=== PATIENT | male | born 1955 | race Caucasian/White ===

== ENCOUNTER → 2017-06-07 | Outpatient (CLI) | payer OTHER ==
[~2017-06-07] MED LIST: BARIUM SUSPENSION 2.1% (VANILLA SILQ) 450 ML PO ONE; CATHETER FLUSH 10 ML SYR IV PRN; IOHEXOL 350 MG/ML 100 ML (OMNIPAQUE 350) VIAL IV ONE; NS 250 ML (IVPB) BAG IV ONE
--- NOTE | 2017-06-07 11:13 | Diagnostic Imaging Report ---
PROCEDURE: CT abdomen and pelvis with contrast. TECHNIQUE: Multiple contiguous axial images were obtained through the abdomen and pelvis after administration of intravenous contrast. INDICATION: Left lung mass, lung cancer and metastatic disease. Comparison is made to CT scan of the thorax dated 05/15/2017 from [facility]. FINDINGS: Lobulated solid mass in the left lung base is partially included on the abdominal CT study. Mass measures at least 12 x 7.3 cm similar to the previous study. No focal hepatic, gallbladder, pancreatic or splenic lesion is identified. There is mild nodularity to the posterior limb of the right adrenal gland with nodule measuring 1.5 x 0.7 cm. 1.5 cm right lower pole renal cyst is noted. No solid renal lesion is identified. There is no evidence of hydronephrosis. No pathologic adenopathy is seen within the abdomen or pelvis. Partially opacified urinary bladder is unremarkable. There is moderate lumbar spondylosis. IMPRESSION: Dominant mass is seen in the lower lobe of the left lung compatible with patient's known lung cancer. There is nodularity to the right adrenal gland. While this may be benign, early metastatic disease is not fully excluded. Otherwise, there is no CT evidence of acute abnormality or metastatic disease in the abdomen or pelvis. Dictated by: Dictated on workstation # [id number]
== END ==
LOC: RAD 08:46
PROVIDERS: ATTEND Internal Medicine Hematology & Oncology
DX: C34.92 Malignant neoplasm of unspecified part of left bronchus or lung (principal); C79.31 Secondary malignant neoplasm of brain; E27.8 Other specified disorders of adrenal gland
CPT/HCPCS: 74177

== ENCOUNTER 2017-07-08 15:17 | Inpatient (IN) | payer OTHER ==
[~2017-07-08] VITALS: Ht 180.3 cm; Wt 85.3 kg
[2017-07-08 16:00] VITALS: BP 101/56
[2017-07-08 17:00] VITALS: BP 104/66
[2017-07-08] MEDS ORDERED: LEVE500T6 PO (17:08)
[2017-07-08] MEDS ORDERED: DABR75CA PO (17:12)
[2017-07-08] MEDS ORDERED: TRAM2TAB PO (17:12)
--- NOTE | 2017-07-08 17:36 | History & Physical-Hospitalist ---
History of Present Illness HPI/Chief Complaint CC: Hypoxia with accelerated junctional arrhythmia HPI: This is a 61-year-old white male patient of Dr. Elmore who was previously in good health all of his life until he suffered a new onset seizure and upon assessment in the [facility] ER on May 14 he was found to have a brain mass so he was transferred over to [facility] in [place] for neurological evaluation. Upon further assessment he was found to have lung masses and lung biopsy was performed by interventional radiology the confirmed metastatic melanoma of unknown primary source. He does not smoke he does not drink alcohol to excess any previously worked up until a month ago at [facility]. I have updated Dr. Elmore on accepting this patient to higher level of care and spoke to Dr. Escobedo she will seen in consultation since he was scheduled to see her this afternoon and cardiology for accelerated junctional arrhythmia in addition to Dr. Workman for hypoxia. When I assessed him an ABG was being obtained he was found to have a fever of 101.8 so I initiated the sepsis protocol including blood cultures empirically started Zosyn and noted lactic acid was within normal limits. Source: patient, family, RN/MD Exam Limitations: no limitations Date Seen 07/08/17 Time Seen by Provider: 17:30 Attending Physician Inessa Bedoya Lisa A MD Referring Physician Date of Admission July 08, 2017 at 15:17 Home Medications & Allergies Home Medications Reviewed patient Home Medication Reconciliation performed by pharmacy medication reconciliations cardiopulmonary technician and eeg tech and/or nursing. Patients Allergies have been reviewed. Allergies Allergies Coded Allergies No Allergy Information Available (Unverified06/07/17) Past Oulhpom-Umhsod-Klputp Hx Past Med/Social Hx: Reviewed Nursing Past Med/Soc Hx, Reviewed and Corrections made Patient Social History Marrital Status: single Employed/Student: employed Smoking Status: Never a Smoker Past Medical History Neurological: Seizure Disorder Cancer: Melanoma dx 05/14/17 Review of Systems Constitutional: see HPI, dizziness, fever, malaise, weakness EENTM: no symptoms reported Respiratory: cough, short of breath, wheezing Cardiovascular: palpitations Gastrointestinal: loss of appetite, nausea Genitourinary: no symptoms reported Musculoskeletal: back pain Skin: no symptoms reported Psychiatric/Neurological: No Symptoms Reported All Other Systems Reviewed Negative Unless Noted: Yes Physical Exam Physical Exam Vital Signs Vital Signs - First Documented 07/08/17 07/08/17 16:00 17:00 Temp 101.8 Pulse 74 Resp 31 B/P (MAP) 101/56 (71) Pulse Ox 96 O2 Delivery Room Air O2 Flow Rate 3.00 Capillary Refill : General Appearance: WD/WN, Chronically ill, Mild Distress (coughing and fatigued), Obese, Other (chronically ill) Eyes: Bilateral Eye Normal Inspection, Bilateral Eye PERRL HEENT: PERRL/EOMI, Normal ENT Inspection, Pharynx Normal Neck: Full Range of Motion, Normal Inspection, Non Tender, Supple, Carotid Bruit Respiratory: Chest Non Tender, No Accessory Muscle Use, No Respiratory Distress , Decreased Breath Sounds Cardiovascular: No Edema, No Gallop, No JVD, No Murmur, Normal Peripheral Pulses, Tachycardia Gastrointestinal: Normal Bowel Sounds, No Organomegaly, No Pulsatile Mass, Non Tender, Soft Back: Normal Inspection, No CVA Tenderness, No Vertebral Tenderness Extremity: Normal Capillary Refill, Normal Inspection, Normal Range of Motion, Non Tender, No Calf Tenderness, No Pedal Edema Neurologic/Psychiatric: Alert, Oriented x3, No Motor/Sensory Deficits, Normal Mood/Affect Skin: Normal Color, Warm/Dry Lymphatic: No Adenopathy Results Results/Procedures Labs Laboratory Tests 07/08/17 17:55 Patient resulted labs reviewed. Assessment/Plan Admission Diagnosis Hypoxia with cardiac arrhythmia Admission Status: Inpatient Order (span 2 midnights) Reason for Inpatient Admission: Hypoxia with new dx of melanoma with mets and unknown primary with cardiac arrythymia Assessment and Plan Plan: CSD status Consult Dr Gillespie Monitor on Tely O2 maintenance Sepsis w/u due to fever of 101.8 Reconcile and restart all home meds Diagnosis/Problems Diagnosis/Problems (1) Junctional ectopic tachycardia Status: Acute Assessment & Plan: 07/08 -Consult Dr Gillespie and check EKG and maintain Tely (2) Hypoxia Status: Acute Assessment & Plan: 07/08 -O2, Nebs and Dr Workman consultation (3) Fever Status: Acute Assessment & Plan: 07/08 -Empiric abx for presumed post-obstructive pneumonia LLL after BCx obtained and noted LA nl Qualifiers: Fever type: unspecified Qualified Codes: R50.9 - Fever, unspecified (4) Seizure disorder Status: Chronic Assessment & Plan: 07/08 -Keppra home med (5) Cough Status: Acute Assessment & Plan: 07/08 -Nebs (6) Metastatic melanoma Status: Acute Assessment & Plan: 07/08 -Dr Henson consult INESSA BEDOYA DO July 08, 2017 17:36
[2017-07-08 17:43] LABS: ABG BASE EXCESS 5.2 MMOL/L (-2.5-2.5); ABG OXYGEN SATURATION 98 % (94-100); ABG PCO2 44 MMHG (35-45); ABG PH 7.44 (7.37-7.43); ABG PO2 99 MMHG (79-93); ABG TCO2 30.2 MMOL/L (21.0-31.0)
[2017-07-08] MEDS ORDERED: HYDROcodone/APAP 5 MG/325 MG (LORTAB) TAB PO PRN (17:45)
[2017-07-08] MEDS ORDERED: fentaNYL INJECTION 100 MCG/2 ML AMP IVP PRN (17:45)
[2017-07-08] MEDS ORDERED: ALPRAZolam 0.25 MG (XANAX) TAB PO PRN (17:45)
[2017-07-08] MEDS ORDERED: PIPERACILLIN SODIUM/TAZOBACTAM 4.5 GM in NS (IVPB) 100 ML IV SCH (17:45)
[2017-07-08] MEDS ORDERED: ACETAMINOPHEN 500 MG TAB (TYLENOL) PO PRN (17:45)
[2017-07-08] MEDS ORDERED: ONDANSETRON 4 MG/2 ML (SDV) Z0FRAN IVP PRN (17:45)
[2017-07-08 17:46] LABS: INSPIRED O2 3; PATIENT TEMP 101.8; VENTILATOR NO
--- NOTE | 2017-07-08 17:58 | Diagnostic Imaging Report ---
INDICATION: Hypoxia. FINDINGS: Upright chest shows normal heart size and vascularity. There is an area of increased density in the left lower lobe consistent with a mass that was seen on a CT of the abdomen from 06/07/2017. No alveolar infiltrates are seen. There is no effusion or pneumothorax. IMPRESSION: There is a 10 cm mass in the left lower lobe. Dictated by: Dictated on workstation # [id number]
--- NOTE | 2017-07-08 17:58 | Oncology Consultation ---
Visit Information Visit Information Date of Admission July 08, 2017 at 15:17 Attending Physician Inessa Higuera DO Admitting Physician Adriana Elmore MD Chief Complaint Arrhythmia, lethargic, Interval History Mr. 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 He presented to ER with fever 102 last night and lethargic. He was noticed to have arrhythmia at the [facility] and dehydration. Dr Higuera admitted patient to ICU here for monitoring and further treatment. He was supposed to get his chemo teaching today at the cancer center but has to reschedule. I consulted the patient on: 07/08/17 17:52 Time Seen by Provider: 17:05 Constitutional: weakness EENTM: eye pain Respiratory: no symptoms reported Cardiovascular: palpitations Gastrointestinal: loss of appetite Genitourinary: no symptoms reported Musculoskeletal: no symptoms reported Psychiatric/Neurological: Headache, Weakness Health Status Allergies Coded Allergies: No Allergy Information Available (Unverified , 06/07/17) Home Medications Dabrafenib Mesylate (Tafinlar) 75 Mg Capsule, 75 MG PO BID, (Reported) HAS NOT STARTED YET Levetiracetam (Levetiracetam) 500 Mg Tablet, 500 MG PO BID, (Reported) Trametinib Dimethyl Sulfoxide (Mekinist) 2 Mg Tablet, 2 MG PO DAILY, (Reported) HAS NOT STARTED YET Physical Exam Vital Signs Vital Signs - First Documented 07/08/17 07/08/17 07/08/17 03:27 16:00 17:00 Temp 101.8 Pulse 112 Resp 31 B/P (MAP) 101/56 (71) Pulse Ox 96 O2 Delivery Room Air O2 Flow Rate 3.00 Capillary Refill : General Appearance: No Apparent Distress HEENT: PERRL/EOMI Neck: Non Tender, Supple Respiratory: Chest Non Tender, Lungs Clear, No Accessory Muscle Use, No Respiratory Distress Cardiovascular: No Edema, No Gallop, No JVD, Extra Beats Gastrointestinal: Non Tender, Soft Extremity: Non Tender, No Calf Tenderness, No Pedal Edema Neurologic/Psychiatric: Alert, Oriented x3 Data Review Labs Laboratory Tests 07/08/17 17:55 07/09/17 03:03 Laboratory Tests 07/08/17 17:04: Arterial Blood pH 7.44H, Arterial Blood Partial Pressure O2 99H, Arterial Blood HCO3 29H, Arterial Blood Base Excess 5.2H 07/08/17 17:55: Red Blood Count 3.63L, Hemoglobin 10.7L, Hematocrit 31L, Red Cell Distribution Width 16.5H, Neutrophils (%) (Auto) 83H, Lymphocytes (%) (Auto) 10L, Lymphocytes # (Auto) 0.5L, Total Protein 5.4L, Albumin 2.9L 07/08/17 19:25: Urine Specific [place] 1.010L, Urine Protein 1+H, Urine Leukocyte Esterase 1+H, Urine RBC (Auto) 4+H, Urine RBC 10-25H, Urine Mucus SMALLH 07/09/17 03:03: Red Blood Count 3.24L, Hemoglobin 9.6L, Hematocrit 29L, Red Cell Distribution Width 16.8H, Neutrophils (%) (Auto) 85H, Lymphocytes (%) (Auto) 7L, Lymphocytes # (Auto) 0.4L, Total Protein 5.1L, Albumin 2.7L, Calcium Level 8.4L Impression & Plan Impression & Plan IMP 1. Fever, ? source 2. Lethargic, multifactors. Better after IVF 3. Metastatic melanoma to the lung and brain, s/p cranial radiation 4 weeks ago. 4. Dehydration 5. Cardiac arrhythmia, ? etiology Plan: 1. IVF 2. Cardiology consult 3. Reschedule chemo teaching 4. culture if spike fever again 5. Dr Higuera to decide if patient needs to be on antibiotics. KWADWO HITCHCOCK MD July 08, 2017 17:58
[2017-07-08] MEDS ORDERED: PIPERACILLIN SODIUM/TAZOBACTAM 4.5 GM in NS (IVPB) 100 ML IV NR (18:00)
[2017-07-08] MEDS ORDERED: CATHETER FLUSH 10 ML SYR IV PRN (18:00)
[2017-07-08 18:10] LABS: BASOPHILS % (AUTO) 0 % (0-10); EOSINOPHILS # (AUTO) 0.2 10^3/uL (0.0-0.3); EOSINOPHILS % (AUTO) 4 % (0-10); HEMATOCRIT 31 % (40-54); HEMOGLOBIN 10.7 G/DL (13.3-17.7); LYMPHOCYTES # (AUTO) 0.5 X 10^3 (1.0-4.0); LYMPHOCYTES % (AUTO) 10 % (12-44); MEAN CORPUSCULAR HEMOGLOBIN 30 PG (25-34); MEAN CORPUSCULAR HGB CONC 34 G/DL (32-36); MEAN CORPUSCULAR VOLUME 86 FL (80-99); MEAN PLATELET VOLUME 10.3 FL (7.4-10.4); MONOCYTES # (AUTO) 0.1 X 10^3 (0.0-1.0); MONOCYTES % (AUTO) 3 % (0-12); NEUTROPHILS # (AUTO) 4.3 X 10^3 (1.8-7.8); NEUTROPHILS % (AUTO) 83 % (42-75); PLATELET COUNT 148 10^3/uL (130-400); RED BLOOD COUNT 3.63 10^6/uL (4.35-5.85); RED CELL DISTRIBUTION WIDTH 16.5 % (10.0-14.5); WHITE BLOOD COUNT 5.2 10^3/uL (4.3-11.0)
[2017-07-08] MEDS: NS IV 1000 ML 1,000 ML IV SCH (18:24)
[2017-07-08] MEDS: ENOXAPARIN 40 MG/0.4 ML (LOVENOX) SYR SC SCH (18:24)
[2017-07-08 18:27] LABS: ALANINE AMINOTRANSFERASE 21 U/L (0-55); ALBUMIN 2.9 GM/DL (3.2-4.5); ALKALINE PHOSPHATASE 47 U/L (40-136); BILIRUBIN,TOTAL 0.6 MG/DL (0.1-1.0); BUN/CREATININE RATIO 20; CALCIUM 8.6 MG/DL (8.5-10.1); CARBON DIOXIDE 29 MMOL/L (21-32); CHLORIDE 101 MMOL/L (98-107); CREATININE SERUM 0.61 MG/DL (0.60-1.30); GFR ESTIMATED > 60; GLUCOSE 96 MG/DL (70-105); POTASSIUM 3.6 MMOL/L (3.6-5.0); SODIUM 138 MMOL/L (135-145); TOTAL PROTEIN 5.4 GM/DL (6.4-8.2)
[2017-07-08 19:00] VITALS: BP 100/58
[2017-07-08 20:21] LABS: BILIRUBIN,URINE NEGATIVE (NEGATIVE); CLARITY,URINE CLEAR; COLOR,URINE YELLOW; GLUCOSE, URINE (UA) NEGATIVE (NEGATIVE); KETONES,URINE NEGATIVE (NEGATIVE); LEUKOCYTE ESTERASE ,URINE 1+ (NEGATIVE); NITRITE,URINE NEGATIVE (NEGATIVE); PH,URINE 7 (5-9); PROTEIN,URINE 1+ (NEGATIVE); UROBILINOGEN,URINE 1 MG/DL (NORMAL)
[2017-07-08 20:28] LABS: WBC,URINE 0-2 /HPF
[2017-07-08] MEDS ORDERED: NON-FORMULARY MEDICATION 1 EA EA (Levetiracetam 500 MG) PO SCH (21:00)
[2017-07-08] MEDS ORDERED: LEVETIRACETAM 500 MG (KEPPRA) TAB PO ONE (21:32)
[2017-07-08] MEDS: LEVETIRACETAM 500 MG (KEPPRA) TAB PO SCH (21:38)
[2017-07-08 23:20] VITALS: BP 103/56
[2017-07-08] MEDS: PIPERACILLIN SODIUM/TAZOBACTAM 4.5 GM in NS (IVPB) 100 ML IV SCH (23:22)
[2017-07-09] MEDS: NS IV 1000 ML 1,000 ML IV SCH ×2 (01:19→09:10)
[2017-07-09 03:27] LABS: BASOPHILS % (AUTO) 0 % (0-10); EOSINOPHILS # (AUTO) 0.2 10^3/uL (0.0-0.3); EOSINOPHILS % (AUTO) 5 % (0-10); HEMATOCRIT 29 % (40-54); HEMOGLOBIN 9.6 G/DL (13.3-17.7); LYMPHOCYTES # (AUTO) 0.4 X 10^3 (1.0-4.0); LYMPHOCYTES % (AUTO) 7 % (12-44); MEAN CORPUSCULAR HEMOGLOBIN 30 PG (25-34); MEAN CORPUSCULAR HGB CONC 34 G/DL (32-36); MEAN CORPUSCULAR VOLUME 88 FL (80-99); MONOCYTES # (AUTO) 0.2 X 10^3 (0.0-1.0); MONOCYTES % (AUTO) 4 % (0-12); NEUTROPHILS # (AUTO) 4.5 X 10^3 (1.8-7.8); NEUTROPHILS % (AUTO) 85 % (42-75); PLATELET COUNT 145 10^3/uL (130-400); RED BLOOD COUNT 3.24 10^6/uL (4.35-5.85); RED CELL DISTRIBUTION WIDTH 16.8 % (10.0-14.5); WHITE BLOOD COUNT 5.3 10^3/uL (4.3-11.0)
[2017-07-09 03:49] LABS: ALANINE AMINOTRANSFERASE 20 U/L (0-55); ALBUMIN 2.7 GM/DL (3.2-4.5); ALKALINE PHOSPHATASE 45 U/L (40-136); BILIRUBIN,TOTAL 0.8 MG/DL (0.1-1.0); BUN/CREATININE RATIO 15; CALCIUM 8.4 MG/DL (8.5-10.1); CARBON DIOXIDE 28 MMOL/L (21-32); CHLORIDE 107 MMOL/L (98-107); CREATININE SERUM 0.65 MG/DL (0.60-1.30); GFR ESTIMATED > 60; GLUCOSE 89 MG/DL (70-105); POTASSIUM 3.7 MMOL/L (3.6-5.0); SODIUM 142 MMOL/L (135-145); TOTAL PROTEIN 5.1 GM/DL (6.4-8.2)
[2017-07-09 03:53] VITALS: BP 97/57
--- NOTE | 2017-07-09 05:58 | Pulmonary Consultation ---
History of Present Illness History of Present Illness Date of Consultation 07/09/17 05:53 Time Seen by Provider: 05:53 Date of Admission History of Present Illness 61yo with recent dx of acute seizure and then found to have metastatic melanoma to lungs and brain. Pt had recent hospitalization at [facility] and then discharged home. [place] [facility] [place] presented to [place] and found to have acute sepsis and hypoxia. Pt had a fever of 101.8. He has been started on severe sepsis protocol and Zosyn. I am consulted for medical management. Allergies and Home Medications Allergies Coded Allergies: No Allergy Information Available (Unverified , 06/07/17) Home Medications Dabrafenib Mesylate 75 Mg Capsule, 75 MG PO BID, (Reported) HAS NOT STARTED YET Levetiracetam 500 Mg Tablet, 500 MG PO BID, (Reported) Trametinib Dimethyl Sulfoxide 2 Mg Tablet, 2 MG PO DAILY, (Reported) HAS NOT STARTED YET Past Tlmfsrh-Yslpys-Zxmmqw Hx Past Med/Social Hx: Reviewed Nursing Past Med/Soc Hx, Reviewed and Corrections made Patient Social History Alcohol Use: Denies Use Recreational Drug Use: No Smoking Status: Never a Smoker Recent Foreign Travel: No Contact w/Someone Who Travel: No Recent Infectious Disease Expo: No Recent Hopitalizations: Yes ([facility] may 16-may 19 d/cd ) Immunizations Up To Date Date of Pneumonia Vaccine: May 15, 2017 Seasonal Allergies Seasonal Allergies: No Past Medical History Surgeries: Yes Respiratory: No Currently Using CPAP: No Currently Using BIPAP: No Cardiac: Yes (bradycardia ) Neurological: Yes Seizure Disorder Sexually Transmitted Disease: No HIV/AIDS: No Genitourinary: No Gastrointestinal: Yes Gastroesophageal Reflux Musculoskeletal: Yes (fx ankle ) Arthritis, Fractures Endocrine: No HEENT: Yes (wears glasses since he was young boy reason unknown) Loss of Vision: Bilateral Hearing Impairment: Denies Cancer: Yes Brain, Lung Did You Recieve Any Treatments: Yes What Type of Treatment Did You: Radiation Melanoma dx 05/14/17 Psychosocial: No Integumentary: No Blood Disorders: No Adverse Reaction/Blood Tranf: No Family Medical History Arthritis Cardiovascular disease Colon cancer Visual disorder Review of Systems Time Seen by Provider: 06:20 Constitutional: Fever, Sweats, Weakness, Malaise Eyes: No: Pain, Vision change, Conjunctivae inflammation, Eyelid inflammation, Other, Redness ENT: No: Ear pain, Ear discharge, Nose pain, Nose discharge, Nose congestion, Mouth pain, Mouth swelling, Throat pain, Throat swelling, Other Respiratory: Cough, Shortness of breath, SOB with excertion, Sputum; No: Wheezing Cardiovascular: Paroxysmal Noc. Dyspnea, Lt Headedness Neurological: Weakness, Confusion Exam Exam Vital Signs Date Time Temp Pulse Resp B/P (MAP) Pulse Ox O2 Delivery O2 Flow Rate FiO2 07/09/17 03:53 96.5 63 20 97/57 (70) 97 Nasal Cannula 3.00 07/09/17 01:00 64 07/08/17 23:20 97.1 73 19 103/56 (72) 97 Nasal Cannula 3.00 07/08/17 22:45 98.0 07/08/17 21:40 102.3 07/08/17 20:30 97 Nasal Cannula 3.00 07/08/17 19:00 89 07/08/17 19:00 100.2 85 24 100/58 (72) 97 Nasal Cannula 3.00 07/08/17 17:00 101.8 84 31 104/66 (79) 98 Nasal Cannula 3.00 07/08/17 16:00 74 101/56 (71) 96 Room Air 3.00 I & O 07/09/17 07:00 Intake Total 1325 ml Output Total 975 ml Balance 350 ml General Appearance: WD/WN, Chronically ill, Mild Distress, Obese, Other ( chronically ill) HEENT: PERRL/EOMI, Normal ENT Inspection, Pharynx Normal Neck: Full Range of Motion, Normal Inspection, Non Tender, Supple, Carotid Bruit Respiratory: Chest Non Tender, No Accessory Muscle Use, No Respiratory Distress , Decreased Breath Sounds Cardiovascular: No Edema, No Gallop, No JVD, No Murmur, Normal Peripheral Pulses, Tachycardia Extremity: Normal Capillary Refill, Normal Inspection, Normal Range of Motion, Non Tender, No Calf Tenderness, No Pedal Edema Neurologic/Psychiatric: Alert, Oriented x3, No Motor/Sensory Deficits, Normal Mood/Affect Skin: Normal Color, Warm/Dry Lymphatic: No Adenopathy Results Lab Laboratory Tests 07/08/17 17:55 07/09/17 03:03 Assessment/Plan Assessment/Plan Sepsis probably secondary to postobstructive PNA -Continue Zosyn -[place] cultures pending -IVF Hypoxia secondary to large lung mass -PT will probably need home oxygen -SVNs Metastatic melanoma with mets to lung and brain, s/p cranial radiation 4 weeks ago. -Oncology following Seizures secondary to brain mets -RAJINDER Villafana DO July 09, 2017 05:58
[2017-07-09] MEDS: PIPERACILLIN SODIUM/TAZOBACTAM 4.5 GM in NS (IVPB) 100 ML IV SCH ×2 (08:57→16:28)
[2017-07-09] MEDS ORDERED: LEVETIRACETAM 500 MG (KEPPRA) TAB PO SCH (09:00)
[2017-07-09] MEDS: LEVETIRACETAM 500 MG (KEPPRA) TAB PO SCH ×2 (09:09→20:50)
--- NOTE | 2017-07-09 10:22 | Progress Note-Hospitalist ---
Subjective HPI/CC On Admission Date Seen by Provider: July 09, 2017 Time Seen by Provider: 09:30 CC: Hypoxia with accelerated junctional arrhythmia HPI: This is a 61-year-old white male patient of Dr. Elmore who was previously in good health all of his life until he suffered a new onset seizure and upon assessment in the [facility] ER on May 14 he was found to have a brain mass so he was transferred over to [facility] in [place] for neurological evaluation. Upon further assessment he was found to have lung masses and lung biopsy was performed by interventional radiology the confirmed metastatic melanoma of unknown primary source. He does not smoke he does not drink alcohol to excess any previously worked up until a month ago at [facility]. I have updated Dr. Elmore on accepting this patient to higher level of care and spoke to Dr. Escobedo she will seen in consultation since he was scheduled to see her this afternoon and cardiology for accelerated junctional arrhythmia in addition to Dr. Workman for hypoxia. When I assessed him an ABG was being obtained he was found to have a fever of 101.8 so I initiated the sepsis protocol including blood cultures empirically started Zosyn and noted lactic acid was within normal limits. Subjective/Events-last exam Patient doing about the same Cough is still an issue so he is open to taking Tessalon Perles I did speak with Dr. 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 and Tylenol given Last bowel movement 07/07/17 Zosyn empiric for presumed postobstructive pneumonia Denies any pain Appreciate oncology consultation Review of Systems Pulmonary: Dyspnea, Cough Focused Exam Lactate Level 07/08/17 17:55: Lactic Acid Level 0.75 Objective Exam Vital Signs Vital Signs Date Time Temp Pulse Resp B/P (MAP) Pulse Ox O2 Delivery O2 Flow Rate FiO2 07/09/17 07:00 69 07/09/17 03:53 96.5 20 97/57 (70) 97 Nasal Cannula 3.00 Capillary Refill : General Appearance: No Apparent Distress, WD/WN, Chronically ill, Obese Respiratory: Lungs Clear, Normal Breath Sounds, Decreased Breath Sounds Cardiovascular: Regular Rate, Rhythm, No Edema Neurologic/Psychiatric: Alert, Oriented x3, No Motor/Sensory Deficits, Depressed Affect Skin: Normal Color, Warm/Dry Lymphatic: No Adenopathy Results/Procedures Lab Laboratory Tests 07/08/17 17:55 07/09/17 03:03 Patient resulted labs reviewed. Assessment/Plan Assessment and Plan Assess & Plan/Chief Complaint Assessment: Hypoxia with junctional accelerated arrhythmia Pneumonia Plan: CSD status Consult Dr Gillespie is appreciated Monitor on Tely O2 maintenance Monitor fever Reconciled and restarted all home meds Diagnosis/Problems Diagnosis/Problems (1) Junctional ectopic tachycardia Status: Acute Assessment & Plan: 07/08 -Consult Dr Gillespie and check EKG and maintain Tely (2) Hypoxia Status: Acute Assessment & Plan: 07/08 -O2, Nebs and Dr Workman consultation (3) Fever Status: Acute Assessment & Plan: 07/08 -Empiric abx for presumed post-obstructive pneumonia LLL after BCx obtained and noted LA nl Qualifiers: Fever type: unspecified Qualified Codes: R50.9 - Fever, unspecified (4) Seizure disorder Status: Chronic Assessment & Plan: 07/08 -Kera home med (5) Cough Status: Acute Assessment & Plan: 07/08 -Nebs (6) Metastatic melanoma Status: Acute Assessment & Plan: 07/08 -Dr Henson consult (7) Pneumonia Status: Acute Assessment & Plan: Presumed post obstructive Qualifiers: Pneumonia type: due to unspecified organism Laterality: left Lung location: lower lobe of lung Qualified Codes: J18.1 - Lobar pneumonia, unspecified organism Clinical Quality Measures DVT/VTE Risk/Contraindication: Risk Factor Score Per Nursin RFS Level Per Nursing on Admit: 4+=Very High KRISTEN BEDOYA DO July 09, 2017 10:22
[2017-07-09 11:18] VITALS: BP 95/60
[2017-07-09] MEDS: BENZONATATE 100 MG (TESSALON) CAPSULE PO SCH ×3 (11:25→20:49)
--- NOTE | 2017-07-09 13:29 | Consultation-Cardiology ---
HPI-Cardiology Cardiology Consultation: Date of Consultation 07/09/17 Date of Admission Attending Physician Inessa Higuera DO Admitting Physician Adriana Elmore MD Consulting Physician Danny GILLESPIE MD HPI: Time Seen by Provider: 13:00 Chief Complaint: Arrhythmia This is a 61-year-old gentleman who is a patient of Dr. Elmore. 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 Which was diagnosed due to a new onset seizure. He underwent cranial radiation therapy. He presented to [facility] with complains of lethargy and fever. He was also having isolated junctional arrhythmia and hypoxia and was therefore transferred to our hospital for further management. Patient denies any chest pain, syncope, near-syncope, palpitations. However he does complain of shortness of breath. High-grade fever was also noted. Review of Systems-Cardiology Review of Systems Constitutional: As described under HPI; No As described under HPI, No no symptoms reported, No chills; fever; No lightheadedness; tiredness Eyes: No As described under HPI, No no symptoms reported, No blindness, No blurred vision, No contact lenses, No drainage, No decreased acuity, No foreign body sensation, No pain, No vision change Ears/Nose/Throat: No As described under HPI, No no symptoms reported, No chronic hearing loss, No ear discharge, No ear pain, No nasal drainage, No ulcerations Respiratory: No no symptoms reported; As described under HPI; No As described under HPI, No cough, No orthopnea; shortness of breath; No SOB with excertion Cardiovascular: No no symptoms reported; As described under HPI; No As described under HPI, No chest pain, No edema, No irregular heart rate, No lightheadedness, No palpitations Gastrointestinal: No no symptoms reported, No As described under HPI, No abdomen distended, No abdominal pain, No blood streaked bowels, No constipation , No diarrhea, No nausea, No vomiting, No stool coloration changes Genitourinary: No As described under HPI, No burning, No dysuria, No discharge , No frequency, No flank pain, No hematuria, No urgency Musculoskeletal: No no symptoms reported, No As describe under HPI, No back pain, No gout, No joint pain, No joint swelling, No muscle pain, No muscle stiffness, No neck pain, No other Skin: No no symptoms reported, No As described under HPI, No change in color, No change in hair/nails, No dryness, No lesions, No lumps, No rash, No other, No skin related problems, No ulcerations, No rash on exposed areas, No ulcerations on exposed areas Psychiatric/Neurological: As described under HPI; No no symptoms reported, No anxiety, No depression, No emotional problems, No headache, No numbness, No pre- existing deficit, No seizure, No tingling, No tremors, No weakness, No other, No focal weakness, No syncope Hematologic: No bleeding abnormalities All Other Systems Reviewed Negative Unless Noted: Yes FLV-Iwsrai-Fcvzyp Hx Patient Social History Marrital Status: single Employed/Student: employed Alcohol Use: Denies Use Recreational Drug Use: No Smoking Status: Never a Smoker Recent Foreign Travel: No Recent Infectious Disease Expo: No Hospitalization with Isolation: Denies Physical Abuse Screen: No Sexual Abuse: No Immunizations Up To Date Date of Pneumonia Vaccine: May 15, 2017 Past Medical History PMH As described under Assessment. Family Medical History Family History: Arthritis Cardiovascular disease Colon cancer Visual disorder Allergies and Home Medications Allergies Coded Allergies: No Allergy Information Available (Unverified , 06/07/17) Home Medications Dabrafenib Mesylate 75 Mg Capsule, 75 MG PO BID, (Reported) HAS NOT STARTED YET Levetiracetam 500 Mg Tablet, 500 MG PO BID, (Reported) Trametinib Dimethyl Sulfoxide 2 Mg Tablet, 2 MG PO DAILY, (Reported) HAS NOT STARTED YET Patient Home Medication List Home Medication List Reviewed: Yes Physical Exam-Cardiology Physical Exam Vital Signs/I&O 07/09/17 07/09/17 07/09/17 07/09/17 11:18 13:00 15:09 16:26 Temp 99.3 98.5 Pulse 70 80 80 Resp 23 30 B/P (MAP) 95/60 (72) 95/56 (69) Pulse Ox 94 92 O2 Delivery Nasal Cannula Nasal Cannula Nasal Cannula O2 Flow Rate 3.00 3.00 1.00 07/09/17 07/09/17 19:00 20:31 Temp 98.2 Pulse 75 81 Resp 20 B/P (MAP) 110/67 (81) Pulse Ox 92 O2 Delivery Nasal Cannula O2 Flow Rate 3.00 07/09/17 00:00 Intake Total 100 ml Balance 100 ml Capillary Refill : Constitutional: AAO x 3 HEENT: No PERRL, No normal ENT inspection, No TMs normal, No pharynx normal, No scleral icterus (R), No scleral icterus (L), No pale conjunctivae (R), No pale conjunctivae (L), No photophobia, No TM abnormal (R), No TM abnormal (L), No pharyngeal erythema, No tonsillar exudate, No other, No discharge, No EOMI, No hearing is well preserved, No hard of hearing, No oral hygience is good, No ulceration, No xanthelasmas are seen Neck: No non-tender, No full range of motion, No supple, No normal inspection, No carotid bruit, No limited range of motion, No lymphadenopathy (R), No lymphadenopathy (L), No tender lateral, No tender midline, No thyromegaly, No other, No carotid pulses are 2 + bilaterally, No with good upstrokes Respiratory: No accessory muscle use, No respiratory distress, No chest tender , No chest expansion is symmetric; chest is bilaterally symmetric; No lungs clear to percussion; lungs clear to auscultation; No crackles, No rhonchi, No rales, No stridor, No wheezing, No pleural rub, No other Cardiovascular: regular rate-rhythm; No irregularly irregular, No extra beats, No parasternal heave is noted, No JVD, No edema, No bradycardia, No tachycardia , No point of maximal impulse, No cardiac thrills are palpable; S1 and S2; No gallop/S3, No gallop/S4, No diastolic murmur, No systolic murmur, No friction rub, No click, No other Data Review Labs Laboratory Tests 07/09/17 03:03: White Blood Count 5.3, Red Blood Count 3.24L, Hemoglobin 9.6L, Hematocrit 29L, Mean Corpuscular Volume 88, Mean Corpuscular Hemoglobin 30, Mean Corpuscular Hemoglobin Concent 34, Red Cell Distribution Width 16.8H, Platelet Count 145, Mean Platelet Volume 10.0, Neutrophils (%) (Auto) 85H, Lymphocytes (%) (Auto) 7L , Monocytes (%) (Auto) 4, Eosinophils (%) (Auto) 5, Basophils (%) (Auto) 0, Neutrophils # (Auto) 4.5, Lymphocytes # (Auto) 0.4L, Monocytes # (Auto) 0.2, Eosinophils # (Auto) 0.2, Basophils # (Auto) 0.0, Sodium Level 142, Potassium Level 3.7, Chloride Level 107, Carbon Dioxide Level 28, Anion Gap 7, Blood Urea Nitrogen 10, Creatinine 0.65, Estimat Glomerular Filtration Rate > 60, BUN/ Creatinine Ratio 15, Glucose Level 89, Calcium Level 8.4L, Total Bilirubin 0.8, Aspartate Amino Transf (AST/SGOT) 8, Alanine Aminotransferase (ALT/SGPT) 20, Alkaline Phosphatase 45, Total Protein 5.1L, Albumin 2.7L Microbiology 07/08/17 Blood Culture - Preliminary, Resulted No growth ECG Impression ECG Initial ECG Rhythm: Normal Sinus A/P-Cardiology Assessment/Admission Diagnosis Malignant melanoma with lung and brain metastases, Possible junctional rhythm, PACs, PVCs, Sepsis, Plan Malignant melanoma with lung and brain metastases, on chemotherapy. Cranial radiation therapy. Oncology services following. Echocardiogram showed borderline low LV function with an EF of 50 percent. Normal RV size and function. No significant valvular heart disease. Possible junctional rhythm, telemetry shows sinus rhythm. No treatment recommended at this point in time. PACs, occasional PACs. We will continue to monitor clinically. PVCs, frequent PVCs however will not recommend beta blockers due to borderline blood pressure. Systolic blood pressure below 100 mmHg on my evaluation. Sepsis, sepsis workup pending. No growth at this point in time. On broad- spectrum antibiotics. Thank you for your consultation. Please call me if you have any questions. Jolie Gillespie MD, FACP, FACC, FSCAI, FHRS, CCDS Interventional Cardiology Cardiac Electrophysiology Vascular Medicine and Endovascular Interventions Clinical Quality Measures DVT/VTE Risk/Contraindication: Risk Factor Score Per Nursin RFS Level Per Nursing on Admit: 4+=Very High Danny GILLESPIE MD July 09, 2017 13:29
[2017-07-09] MEDS ORDERED: KCL 20 MEQ TAB (K-DUR) PO NR (13:39)
--- NOTE | 2017-07-09 15:45 | Physician Progress Note ---
Progress Note Assessment/Plan Time Seen by Provider: 15:15 Events since last exam Pt had fever since admission. Blood culture was sent. Hypotensive. Dr Higuera started him IV antibiotics last night. He is feeling better this afternoon. Chemo teaching rescheduled to 07/18/17 2pm at the [facility] center Assessment/Plan A/P 1. Fever, most likely from pneumonia on IV antibiotics. 2. Lethargic, multifactors. Better after IVF 3. Metastatic melanoma to the lung and brain, s/p cranial radiation 4 weeks ago. Hold off treatment. Rescheduled chemo teaching to 07/18/[address] [place] [address] center. I gave his mother appointment card today. 4. Hypotension/sepsis. better this afternoon. 5. Cardiac arrhythmia, f/u by cardiology. 6. Anemia: ? GI bleeding. Check stool occult blood. Started him on proton inhibitor today. Vitals Last set of Vitals Signs Vital Signs Date Time Temp Pulse Resp B/P (MAP) Pulse Ox O2 Delivery O2 Flow Rate FiO2 07/09/17 15:09 Nasal Cannula 3.00 07/09/17 13:00 80 07/09/17 11:18 99.3 23 95/60 (72) 94 I&O I&O Intake and Output 07/09/17 00:00 Intake Total 100 ml Balance 100 ml IV Total 100 ml Daily Weight Change Yes, 24-33 lbs Labs Laboratory Tests 07/08/17 17:04: Blood Gas Puncture Site LEFT BRACHIAL, Blood Gas Patient Temperature 101.8, Arterial Blood pH 7.44H, Arterial Blood Partial Pressure CO2 44, Arterial Blood Partial Pressure O2 99H, Arterial Blood HCO3 29H, Arterial Blood Total CO2 30.2 , Arterial Blood Oxygen Saturation 98, Arterial Blood Base Excess 5.2H, Dioni Test NA, Blood Gas Ventilator Setting NO, Blood Gas Inspired Oxygen 3 07/08/17 17:55: White Blood Count 5.2, Red Blood Count 3.63L, Hemoglobin 10.7L, Hematocrit 31L, Mean Corpuscular Volume 86, Mean Corpuscular Hemoglobin 30, Mean Corpuscular Hemoglobin Concent 34, Red Cell Distribution Width 16.5H, Platelet Count 148, Mean Platelet Volume 10.3, Neutrophils (%) (Auto) 83H, Lymphocytes (%) (Auto) 10L, Monocytes (%) (Auto) 3, Eosinophils (%) (Auto) 4, Basophils (%) (Auto) 0, Neutrophils # (Auto) 4.3, Lymphocytes # (Auto) 0.5L, Monocytes # (Auto) 0.1, Eosinophils # (Auto) 0.2, Basophils # (Auto) 0.0, Sodium Level 138, Potassium Level 3.6, Chloride Level 101, Carbon Dioxide Level 29, Anion Gap 8, Blood Urea Nitrogen 12, Creatinine 0.61, Estimat Glomerular Filtration Rate > 60, BUN/ Creatinine Ratio 20, Glucose Level 96, Lactic Acid Level 0.75, Calcium Level 8.6 , Total Bilirubin 0.6, Aspartate Amino Transf (AST/SGOT) 10, Alanine Aminotransferase (ALT/SGPT) 21, Alkaline Phosphatase 47, Total Protein 5.4L, Albumin 2.9L 07/08/17 19:25: Urine Color YELLOW, Urine Clarity CLEAR, Urine pH 7, Urine Specific [place] 1.010L, Urine Protein 1+H, Urine Glucose (UA) NEGATIVE, Urine Ketones NEGATIVE, Urine Nitrite NEGATIVE, Urine Bilirubin NEGATIVE, Urine Urobilinogen 1, Urine Leukocyte Esterase 1+H, Urine RBC (Auto) 4+H, Urine RBC 10-25H, Urine WBC 0-2, Urine Crystals NONE, Urine Bacteria NONE, Urine Casts NONE, Urine Mucus SMALLH, Urine Culture Indicated NO 07/09/17 03:03: White Blood Count 5.3, Red Blood Count 3.24L, Hemoglobin 9.6L, Hematocrit 29L, Mean Corpuscular Volume 88, Mean Corpuscular Hemoglobin 30, Mean Corpuscular Hemoglobin Concent 34, Red Cell Distribution Width 16.8H, Platelet Count 145, Mean Platelet Volume 10.0, Neutrophils (%) (Auto) 85H, Lymphocytes (%) (Auto) 7L , Monocytes (%) (Auto) 4, Eosinophils (%) (Auto) 5, Basophils (%) (Auto) 0, Neutrophils # (Auto) 4.5, Lymphocytes # (Auto) 0.4L, Monocytes # (Auto) 0.2, Eosinophils # (Auto) 0.2, Basophils # (Auto) 0.0, Sodium Level 142, Potassium Level 3.7, Chloride Level 107, Carbon Dioxide Level 28, Anion Gap 7, Blood Urea Nitrogen 10, Creatinine 0.65, Estimat Glomerular Filtration Rate > 60, BUN/ Creatinine Ratio 15, Glucose Level 89, Calcium Level 8.4L, Total Bilirubin 0.8, Aspartate Amino Transf (AST/SGOT) 8, Alanine Aminotransferase (ALT/SGPT) 20, Alkaline Phosphatase 45, Total Protein 5.1L, Albumin 2.7L Microbiology 07/08/17 Blood Culture - Preliminary, Resulted No growth Focused Exam Lactate Level 07/08/17 17:55: Lactic Acid Level 0.75 Clinical Quality Measures DVT/VTE Risk/Contraindication: Risk Factor Score Per Nursin RFS Level Per Nursing on Admit: 4+=Very High KWADWO HITCHCOCK MD July 09, 2017 15:45
[2017-07-09 16:26] VITALS: BP 95/56
[2017-07-09] MEDS: ENOXAPARIN 40 MG/0.4 ML (LOVENOX) SYR SC SCH (16:34)
[2017-07-09] MEDS: SUCRALFATE 1 GM (CARAFATE) TAB PO SCH ×2 (16:34→20:49)
[2017-07-09 20:31] VITALS: BP 110/67
[2017-07-09] MEDS: SENNA W/DOCUSATE (SENOKOT S) TABLET PO SCH (20:49)
[2017-07-09] MEDS: POLYETHYLENE GLYCOL 17 GM (MIRALAX) PACK PO SCH (20:49)
[2017-07-09] MEDS: DOCUSATE SODIUM 100 MG (COLACE) CAP PO SCH (20:50)
[2017-07-10] MEDS: NS IV 1000 ML 1,000 ML IV SCH ×2 (00:22→00:36)
[2017-07-10 00:37] VITALS: BP 100/58
[2017-07-10] MEDS: PIPERACILLIN SODIUM/TAZOBACTAM 4.5 GM in NS (IVPB) 100 ML IV SCH ×3 (00:37→16:34)
[2017-07-10 03:46] LABS: BASOPHILS % (AUTO) 0 % (0-10); EOSINOPHILS # (AUTO) 0.3 10^3/uL (0.0-0.3); EOSINOPHILS % (AUTO) 4 % (0-10); HEMATOCRIT 28 % (40-54); HEMOGLOBIN 9.2 G/DL (13.3-17.7); LYMPHOCYTES # (AUTO) 0.4 X 10^3 (1.0-4.0); LYMPHOCYTES % (AUTO) 7 % (12-44); MEAN CORPUSCULAR HEMOGLOBIN 29 PG (25-34); MEAN CORPUSCULAR HGB CONC 33 G/DL (32-36); MEAN CORPUSCULAR VOLUME 88 FL (80-99); MEAN PLATELET VOLUME 10.6 FL (7.4-10.4); MONOCYTES # (AUTO) 0.2 X 10^3 (0.0-1.0); MONOCYTES % (AUTO) 4 % (0-12); NEUTROPHILS # (AUTO) 5.2 X 10^3 (1.8-7.8); NEUTROPHILS % (AUTO) 85 % (42-75); PLATELET COUNT 179 10^3/uL (130-400); RED BLOOD COUNT 3.16 10^6/uL (4.35-5.85); RED CELL DISTRIBUTION WIDTH 16.4 % (10.0-14.5); WHITE BLOOD COUNT 6.1 10^3/uL (4.3-11.0)
[2017-07-10 03:55] LABS: ALANINE AMINOTRANSFERASE 24 U/L (0-55); ALBUMIN 2.6 GM/DL (3.2-4.5); ALKALINE PHOSPHATASE 51 U/L (40-136); BILIRUBIN,TOTAL 0.5 MG/DL (0.1-1.0); BUN/CREATININE RATIO 16; CALCIUM 8.5 MG/DL (8.5-10.1); CARBON DIOXIDE 25 MMOL/L (21-32); CHLORIDE 108 MMOL/L (98-107); CREATININE SERUM 0.62 MG/DL (0.60-1.30); GFR ESTIMATED > 60; GLUCOSE 113 MG/DL (70-105); POTASSIUM 3.7 MMOL/L (3.6-5.0); SODIUM 142 MMOL/L (135-145); TOTAL PROTEIN 4.9 GM/DL (6.4-8.2)
[2017-07-10 04:40] VITALS: BP 99/61
--- NOTE | 2017-07-10 06:31 | Pulmonary Progress Note ---
Subjective Time Seen by Provider: 06:28 Subjective/Events-last exam Pt appears to be doing better. Focused Exam Lactate Level 07/08/17 17:55: Lactic Acid Level 0.75 Exam Exam Vital Signs Date Time Temp Pulse Resp B/P (MAP) Pulse Ox O2 Delivery O2 Flow Rate FiO2 07/10/17 04:40 99.1 71 16 99/61 (74) 94 Nasal Cannula 3.00 07/10/17 01:00 80 07/10/17 00:37 99.5 76 18 100/58 (72) 95 Nasal Cannula 3.00 07/09/17 22:18 96 Nasal Cannula 3.00 07/09/17 21:00 92 Nasal Cannula 3.00 07/09/17 20:31 98.2 81 20 110/67 (81) 92 Nasal Cannula 3.00 07/09/17 19:00 75 07/09/17 16:26 98.5 80 30 95/56 (69) 92 Nasal Cannula 1.00 07/09/17 15:09 Nasal Cannula 3.00 07/09/17 13:00 80 07/09/17 11:18 99.3 70 23 95/60 (72) 94 Nasal Cannula 3.00 07/09/17 08:30 97 Nasal Cannula 3.00 07/09/17 08:00 99.5 77 96 Nasal Cannula 3.00 07/09/17 07:00 69 I & O 07/10/17 07:00 Intake Total 2100 ml Output Total 950 ml Balance 1150 ml General Appearance: No Apparent Distress HEENT: PERRL/EOMI Neck: Non Tender, Supple Respiratory: Chest Non Tender, Lungs Clear, No Accessory Muscle Use, No Respiratory Distress Cardiovascular: No Edema, No Gallop, No JVD, Extra Beats Extremity: Non Tender, No Calf Tenderness, No Pedal Edema Neurologic/Psychiatric: Alert, Oriented x3 Skin: Normal Color, Warm/Dry Lymphatic: No Adenopathy Results Lab Laboratory Tests 07/08/17 17:55 07/09/17 03:03 07/10/17 03:18 Assessment/Plan Assessment/Plan Sepsis probably secondary to postobstructive PNA -Continue Zosyn -[place] cultures pending -IVF Hypoxia secondary to large lung mass -PT will probably need home oxygen -SVNs Metastatic melanoma with mets to lung and brain, s/p cranial radiation 4 weeks ago. -Oncology following Seizures secondary to brain mets -[facility] and radiology reviewed. All questions answered. Will transfer pt to 4th with tele. 233 RAJINDER HYDE DO July 10, 2017 06:30
[2017-07-10] MEDS: PANTOPRAZOLE 40 MG (PROTONIX) TAB PO SCH (06:35)
[2017-07-10 08:00] VITALS: BP 112/57
[2017-07-10] MEDS: BENZONATATE 100 MG (TESSALON) CAPSULE PO SCH ×3 (09:39→21:29)
[2017-07-10] MEDS: DOCUSATE SODIUM 100 MG (COLACE) CAP PO SCH ×2 (09:39→21:30)
[2017-07-10] MEDS: SENNA W/DOCUSATE (SENOKOT S) TABLET PO SCH ×2 (09:39→21:34)
[2017-07-10] MEDS: SUCRALFATE 1 GM (CARAFATE) TAB PO SCH ×4 (09:39→21:30)
[2017-07-10] MEDS: LEVETIRACETAM 500 MG (KEPPRA) TAB PO SCH ×2 (09:39→21:29)
[2017-07-10] MEDS: POLYETHYLENE GLYCOL 17 GM (MIRALAX) PACK PO SCH ×2 (09:40→21:30)
--- NOTE | 2017-07-10 11:25 | Progress Note-Hospitalist ---
Subjective HPI/CC On Admission Date Seen by Provider: July 10, 2017 Time Seen by Provider: 10:00 CC: Hypoxia with accelerated junctional arrhythmia HPI: This is a 61-year-old white male patient of Dr. Elmore who was previously in good health all of his life until he suffered a new onset seizure and upon assessment in the [facility] ER on May 14 he was found to have a brain mass so he was transferred over to [facility] in [place] for neurological evaluation. Upon further assessment he was found to have lung masses and lung biopsy was performed by interventional radiology the confirmed metastatic melanoma of unknown primary source. He does not smoke he does not drink alcohol to excess any previously worked up until a month ago at [facility]. I have updated Dr. Elmore on accepting this patient to higher level of care and spoke to Dr. Escobedo she will seen in consultation since he was scheduled to see her this afternoon and cardiology for accelerated junctional arrhythmia in addition to Dr. Workman for hypoxia. When I assessed him an ABG was being obtained he was found to have a fever of 101.8 so I initiated the sepsis protocol including blood cultures empirically started Zosyn and noted lactic acid was within normal limits. Subjective/Events-last exam Patient doing about the same Does not get up and ambulate yet so I will contact physical therapy for that Overall poor prognosis and it appears the patient knows that and is very depressed Blood culture from [place] 1 bottle was positive but he has not run a fever since Zosyn was initiated and are blood cultures that were done a few hours later were negative and no growth to date Zosyn tolerated and doing well Transferring to fourth floor [facility] maintained and appreciate cardiology and pulmonology input along with oncology. Prognosis very poor Review of Systems General: Fatigue, Malaise Pulmonary: Cough Focused Exam Lactate Level 07/08/17 17:55: Lactic Acid Level 0.75 Objective Exam Vital Signs Vital Signs Date Time Temp Pulse Resp B/P (MAP) Pulse Ox O2 Delivery O2 Flow Rate FiO2 07/10/17 10:09 94 Nasal Cannula 3.00 07/10/17 08:00 99.1 82 18 112/57 (75) Capillary Refill : General Appearance: No Apparent Distress, WD/WN, Chronically ill, Obese Respiratory: Decreased Breath Sounds, Wheezing Cardiovascular: Regular Rate, Rhythm, No Edema Neurologic/Psychiatric: Alert, Oriented x3, No Motor/Sensory Deficits, Depressed Affect Skin: Normal Color, Warm/Dry Lymphatic: No Adenopathy Results/Procedures Lab Laboratory Tests 07/10/17 03:18 Patient resulted labs reviewed. Assessment/Plan Assessment and Plan Assess & Plan/Chief Complaint Assessment: Hypoxia with junctional accelerated arrhythmia Pneumonia Plan: Transfer to fourth floor on telemetry Consult Dr Gillespie is appreciated O2 maintenance Reconciled and restarted all home meds Poor prognosis long-term We'll arrange for home O2 evaluation tomorrow with the disposition soon thereafter with close follow-up with oncology PT/OT Diagnosis/Problems Diagnosis/Problems (1) Junctional ectopic tachycardia Status: Acute Assessment & Plan: 07/08 -Consult Dr Gillespie and check EKG and maintain Tely (2) Hypoxia Status: Acute Assessment & Plan: 07/08 -O2, Nebs and Dr Workman consultation (3) Fever Status: Acute Assessment & Plan: 07/08 -Empiric abx for presumed post-obstructive pneumonia LLL after BCx obtained and noted LA nl Qualifiers: Fever type: unspecified Qualified Codes: R50.9 - Fever, unspecified (4) Seizure disorder Status: Chronic Assessment & Plan: 07/08 -Keppra home med (5) Cough Status: Acute Assessment & Plan: 07/08 -Nebs (6) Metastatic melanoma Status: Acute Assessment & Plan: 07/08 -Dr Henson consult (7) Pneumonia Status: Acute Assessment & Plan: Presumed post obstructive Qualifiers: Pneumonia type: due to unspecified organism Laterality: left Lung location: lower lobe of lung Qualified Codes: J18.1 - Lobar pneumonia, unspecified organism (8) Debility Status: Acute (9) Depressed Status: Acute Qualifiers: Depression Type: reactive depression Qualified Codes: F32.9 - Major depressive disorder, single episode, unspecified Clinical Quality Measures DVT/VTE Risk/Contraindication: Risk Factor Score Per Nursin RFS Level Per Nursing on Admit: 4+=Very High KRISTEN BEDOYA DO July 10, 2017 11:25
--- NOTE | 2017-07-10 14:07 | Occupational Therapy Eval ---
OT Evaluation-General/PLF Medical Diagnosis Admission Date July 08, 2017 at 15:17 Medical Diagnosis: sepsis, hypoxia, melanoma with mets, seizure, pneumonia Onset Date: July 08, 2017 Therapy Diagnosis Therapy Diagnosis: weakness, decr self care, decr act tolerance Height/Weight Height (Feet): 5 Height (Inches): 11.00 Weight (Pounds): 188 Weight (Ounces): 0.0 Precautions Precautions/Isolations: Fall Prevention, Standard Precautions Safety Interventions: None Referral Physician: Kalen Referral Reason: Evaluation/Treatment Medical History Pertinent Medical History: Arthritis, GERD Additional Medical History Brain mass and lung mass, metastatic melanoma. Received one tx cranial radiation about 3 weeks ago. Ankle fx Current History Pt had seizure and was admitted to hospital in [place], where brain mass and lung mass detected. Recent admission to ED in [place] with fever. On O2 about 2- 3 L/min. Transferred from [facility] this morning. 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 Has not been able to drive since his seizure and hasn't worked since then. He has been walking with a quad cane or a walker. OT Current Status Subjective Pt seen in room, up in recliner, eyes closed, agreeable to OT. Pt reported shoulder pain with movement but could not rate or describe pain. Appearance Alert, oriented Mental Status/Objective Attachments: IV, Oxygen, Telemetry Current Glasses/Contacts: Yes Upper Extremity ROM Grossly WFl bilat. Some arthritic changes noted in hands. Pt reported old rotator cuff injury on L shoulder which he said limited movement if he "reached back any farther, you'd have to push my arm forward") Upper Extremity Strength Grossly 3+/5 bilat ADL-Treatment ADL-Current Pt reported that he has been able to feed himself but isn't interested in food. He walked to the shower with nursing assistance but otherwise hasn't been up much. He has not gone to the bathroom in his room yet. He ws able to lean forward to take his slipper socks off and put them back on but became fatigued from the effort. He reported that he has to normally sit on his bed to dress his lower body. Functional [place] Measure 0=Not Assessed/NA 4=Minimal Assistance 1=Total Assistance 5=Supervision or Setup 2=Maximal Assistance 6=Modified [place] 3=Moderate Assistance 7=Complete IndependenceIRFPAI Quality Coding Scale 6 Independent with activity with or without an assistive device 5 Patient requires set up or clean up by helper. Patient completes activity by themselves 4 Supervision or touching assist (CGA). [place] provide cues , steadying assist 3 The helper provides less than half the effort to complete the activity 2 The helper provides more than half the effort to complete the activity 1 Dependent. The helper does all the effort to complete an activity 7 Patient refused to complete or attempt activity 9 The patient did not perform the activity before the current illness or injury 88 Not attempted due to Medical conditions or safety concerns Education OT Patient Education: Purpose of tx/functional activities, Rehab process Teaching Recipient: Patient, Family Teaching Methods: Discussion Response to Teaching: Verbalize Understanding OT Maintenance Fitter Goals Care Home Goals Time Frame: July 19, 2017 Eating (FIM): 6 Grooming(FIM): 6 Bathing(FIM): 6 Upper Body Dressing(FIM): 6 Lower Body Dressing(FIM): 6 Toileting(FIM): 6 Toilet/Commode Transfer(FIM): 6 Shower Transfer(FIM): 5 Pt will verbalize three ways to conserve his energy Additional Goals: 1-Demonstrate ADL Tasks, 2-Verbalize Understanding, 3- ImproveStrength/Juma 1=Demonstrate adherence to instructed precautions during ADL tasks. 2=Patient will verbalize/demonstrate understanding of assistive devices/ modifications for ADL. 3=Patient will improve strength/tolerance for activity to enable patient to perform ADL's. OT Education/Plan Problem List/Assessment Assessment: Decreased Activ Tolerance, Decreased UE Strength, Dependent Transfers, Impaired Self-Care Skills Pt would benefit from skilled OT to increase his independence in basic self care to allow him to safely return home Discharge Recommendations Plan/Recommendations: Continue POC Treatment Plan/Plan of Care Treatment,Training & Education: Yes Patient would benefit from OT for education, treatment and training to promote independence in ADL's, mobility, safety and/or upper extremity function for ADL' s. Plan of Care: ADL Retraining, Functional Mobility, UE Funct Exercise/Act, OTHER (energy conservation education) Treatment Duration: July 19, 2017 Frequency: 5 times per week Estimated Hrs Per Day: .25 hour per day (.25 to .5) Agreement: Yes Rehab Potential: Fair Time/GCodes Start Time: 13:30 Stop Time: 13:50 Total Time Billed (hr/min): 20 Billed Treatment Time visit, 20 minutes evaluation moderate intensity KASANDRA RIZVI OT July 10, 2017 14:07
--- NOTE | 2017-07-10 15:07 | Cardiology Progress Note ---
Cardiology SOAP Progress Note Subjective: Shortness of breath Objective: I&O/Vital Signs 07/10/17 07/10/17 07/10/17 07/10/17 04:40 07:00 08:00 09:00 Temp 99.1 99.1 Pulse 71 71 82 Resp 16 18 B/P (MAP) 99/61 (74) 112/57 (75) Pulse Ox 94 95 95 O2 Delivery Nasal Cannula Nasal Cannula Nasal Cannula O2 Flow Rate 3.00 3.00 3.00 07/10/17 10:09 Pulse Ox 94 O2 Delivery Nasal Cannula O2 Flow Rate 3.00 07/10/17 00:00 Intake Total 1000 ml Output Total 700 ml Balance 300 ml Weight (Pounds): 188 Weight (Ounces): 0.0 Weight (Calculated Kilograms): [id number] Constitutional: AAO x 3 Respiratory: No accessory muscle use, No respiratory distress, No chest tender , No chest expansion is symmetric; chest is bilaterally symmetric; No lungs clear to percussion; lungs clear to auscultation; No crackles, No rhonchi, No rales, No stridor, No wheezing, No pleural rub, No other Cardiovascular: regular rate-rhythm; No irregularly irregular, No extra beats, No parasternal heave is noted, No JVD, No edema, No bradycardia, No tachycardia , No point of maximal impulse, No cardiac thrills are palpable; S1 and S2; No gallop/S3, No gallop/S4, No diastolic murmur, No systolic murmur, No friction rub, No click, No other Gastrointestional: No tender, No soft, No round, No distended, No pulsatile mass, No organomegaly, No guarding, No rebound, No tenderness, No hernia, No mass, No audible bowel sounds, No abnormal bowel sounds, No abdominal bruits, No spleenomegaly, No other Extremities: No normal range of motion, No non-tender, No normal inspection, No pedal edema, No calf tenderness, No normal capillary refill, No pelvis stable , No calf tenderness, No inflammation, No pedal edema, No slow capillary refill , No swelling, No other, No abrasion, No clubbing, No cyanosis, No ecchymosis, No laceration, No no lower extremity edema bilateral, No significant edema, No tenderness, No wound Neurologic/Psychiatric: alert, oriented x 3, depressed affect Skin: No normal color, No warm/dry, No cyanosis, No cool, No diaphoresis, No damp, No ecchymosis, No jaundice, No mottled, No pallor, No rash, No tattoos/ piercings, No ulcerations, No rash on exposed areas, No ulcerations on exposed areas, No other Results/Procedures: Labs Laboratory Tests 07/10/17 03:18: White Blood Count 6.1, Red Blood Count 3.16L, Hemoglobin 9.2L, Hematocrit 28L, Mean Corpuscular Volume 88, Mean Corpuscular Hemoglobin 29, Mean Corpuscular Hemoglobin Concent 33, Red Cell Distribution Width 16.4H, Platelet Count 179, Mean Platelet Volume 10.6H, Neutrophils (%) (Auto) 85H, Lymphocytes (%) (Auto) 7L, Monocytes (%) (Auto) 4, Eosinophils (%) (Auto) 4, Basophils (%) (Auto) 0, Neutrophils # (Auto) 5.2, Lymphocytes # (Auto) 0.4L, Monocytes # (Auto) 0.2, Eosinophils # (Auto) 0.3, Basophils # (Auto) 0.0, Sodium Level 142, Potassium Level 3.7, Chloride Level 108H, Carbon Dioxide Level 25, Anion Gap 9, Blood Urea Nitrogen 10, Creatinine 0.62, Estimat Glomerular Filtration Rate > 60, BUN/ Creatinine Ratio 16, Glucose Level 113H, Calcium Level 8.5, Total Bilirubin 0.5 , Aspartate Amino Transf (AST/SGOT) 11, Alanine Aminotransferase (ALT/SGPT) 24, Alkaline Phosphatase 51, Total Protein 4.9L, Albumin 2.6L Microbiology 07/08/17 Blood Culture - Preliminary, Resulted No growth A/P: Assessment/Dx: Malignant melanoma with lung and brain metastases, Possible junctional rhythm, PACs, PVCs, Sepsis, Depression Plan: Malignant melanoma with lung and brain metastases, on chemotherapy. Cranial radiation therapy. Oncology services following. Echocardiogram showed borderline low LV function with an EF of 50 percent. Normal RV size and function. No significant valvular heart disease. Possible junctional rhythm, telemetry shows sinus rhythm. No treatment recommended at this point in time. PACs, occasional PACs. We will continue to monitor clinically. PVCs, frequent PVCs however will not recommend beta blockers due to borderline blood pressure. Systolic blood pressure below 100 mmHg on my evaluation. Sepsis, sepsis workup pending. No growth at this point in time. On broad- spectrum antibiotics. Depression Thank you for your consultation. Please call me if you have any questions. Jolie Gillespie MD, FACP, FACC, FSCAI, FHRS, CCDS Interventional Cardiology Cardiac Electrophysiology Vascular Medicine and Endovascular Interventions Focused Exam Lactate Level 07/08/17 17:55: Lactic Acid Level 0.75 Danny GILLESPIE MD July 10, 2017 15:07
--- NOTE | 2017-07-10 15:34 | Physical Therapy Progress Note ---
Therapy Progress Note Attempted PT evaluation. Pt sleeping; groggy upon being awakened. Informed this therapist he was tired and wanted to wait until tomorrow. Nursing notified. Nursing reports he has been up SBA with her today. Will attempt PT eval tomorrow. RO NORWOOD PT July 10, 2017 15:34
[2017-07-10 15:58] VITALS: BP 113/54
[2017-07-10] MEDS: ENOXAPARIN 40 MG/0.4 ML (LOVENOX) SYR SC SCH (16:34)
--- NOTE | 2017-07-10 16:47 | Physician Progress Note ---
Progress Note Assessment/Plan Date Seen by Provider: July 10, 2017 Time Seen by Provider: 16:30 Events since last exam T max 99.7 over last 24 hrs. Blood culture negative. Day 3 IV antibiotics for obstructive pneumonia Still need O2 3L to keep Sat above 90%. Assessment/Plan A/P 1. Fever, most likely from pneumonia on IV antibiotics. 2. Hypoxia and lethargic, multifactors. slowly improving 3. Metastatic melanoma to the lung and brain, s/p cranial radiation 4 weeks ago. Hold off treatment. Rescheduled chemo teaching to 07/18/[address] [place] [address]. I gave his mother appointment card. 4. Hypotension/sepsis. slightly better. 5. Cardiac arrhythmia, f/u by cardiology. 6. Anemia: possible GI bleeding. Not able to collect stool for occult blood. Started him on proton inhibitor and Carafate 2 days ago. Hb continues down. Need to stop Lovenox due to high risk of GI bleeding and cranial bleeding as well as worsening anemia. 7. Obstructive pneumonia, will contact Rad/Onc Dr Dang tomorrow for consultation. Vitals Last set of Vitals Signs Vital Signs Date Time Temp Pulse Resp B/P (MAP) Pulse Ox O2 Delivery O2 Flow Rate FiO2 07/10/17 15:58 99.7 83 18 113/54 (73) 95 Nasal Cannula 3.00 I&O I&O Intake and Output 07/10/17 00:00 Intake Total 3225 ml Output Total 1675 ml Balance 1550 ml Intake Oral 925 ml IV Total 2300 ml Output Urine Total 1675 ml # Voids 1 Labs Laboratory Tests 07/10/17 03:18: White Blood Count 6.1, Red Blood Count 3.16L, Hemoglobin 9.2L, Hematocrit 28L, Mean Corpuscular Volume 88, Mean Corpuscular Hemoglobin 29, Mean Corpuscular Hemoglobin Concent 33, Red Cell Distribution Width 16.4H, Platelet Count 179, Mean Platelet Volume 10.6H, Neutrophils (%) (Auto) 85H, Lymphocytes (%) (Auto) 7L, Monocytes (%) (Auto) 4, Eosinophils (%) (Auto) 4, Basophils (%) (Auto) 0, Neutrophils # (Auto) 5.2, Lymphocytes # (Auto) 0.4L, Monocytes # (Auto) 0.2, Eosinophils # (Auto) 0.3, Basophils # (Auto) 0.0, Sodium Level 142, Potassium Level 3.7, Chloride Level 108H, Carbon Dioxide Level 25, Anion Gap 9, Blood Urea Nitrogen 10, Creatinine 0.62, Estimat Glomerular Filtration Rate > 60, BUN/ Creatinine Ratio 16, Glucose Level 113H, Calcium Level 8.5, Total Bilirubin 0.5 , Aspartate Amino Transf (AST/SGOT) 11, Alanine Aminotransferase (ALT/SGPT) 24, Alkaline Phosphatase 51, Total Protein 4.9L, Albumin 2.6L Microbiology 07/08/17 Blood Culture - Preliminary, Resulted No growth Focused Exam Lactate Level 07/08/17 17:55: Lactic Acid Level 0.75 Clinical Quality Measures DVT/VTE Risk/Contraindication: Risk Factor Score Per Nursin RFS Level Per Nursing on Admit: 4+=Very High KWADWO HITCHCOCK MD July 10, 2017 16:47
[2017-07-10 19:15] VITALS: BP 120/60
[2017-07-10] MEDS ORDERED: SERTRALINE 50 MG (ZOLOFT) TABLET PO SCH (21:00)
[2017-07-11 00:08] VITALS: BP 122/56
[2017-07-11] MEDS: PIPERACILLIN SODIUM/TAZOBACTAM 4.5 GM in NS (IVPB) 100 ML IV SCH ×2 (00:22→08:04)
[2017-07-11 07:13] LABS: BASOPHILS % (AUTO) 0 % (0-10); EOSINOPHILS # (AUTO) 0.4 10^3/uL (0.0-0.3); EOSINOPHILS % (AUTO) 6 % (0-10); HEMATOCRIT 27 % (40-54); HEMOGLOBIN 8.8 G/DL (13.3-17.7); LYMPHOCYTES # (AUTO) 0.3 X 10^3 (1.0-4.0); LYMPHOCYTES % (AUTO) 6 % (12-44); MEAN CORPUSCULAR HEMOGLOBIN 29 PG (25-34); MEAN CORPUSCULAR HGB CONC 33 G/DL (32-36); MEAN CORPUSCULAR VOLUME 89 FL (80-99); MEAN PLATELET VOLUME 10.2 FL (7.4-10.4); MONOCYTES # (AUTO) 0.3 X 10^3 (0.0-1.0); MONOCYTES % (AUTO) 5 % (0-12); NEUTROPHILS # (AUTO) 4.8 X 10^3 (1.8-7.8); NEUTROPHILS % (AUTO) 83 % (42-75); PLATELET COUNT 201 10^3/uL (130-400); RED BLOOD COUNT 3.03 10^6/uL (4.35-5.85); RED CELL DISTRIBUTION WIDTH 16.5 % (10.0-14.5); WHITE BLOOD COUNT 5.8 10^3/uL (4.3-11.0)
--- NOTE | 2017-07-11 07:38 | Pulmonary Progress Note ---
Subjective Time Seen by Provider: 07:38 Subjective/Events-last exam Pt appears to be doing better. Focused Exam Lactate Level 07/08/17 17:55: Lactic Acid Level 0.75 Exam Exam Vital Signs Date Time Temp Pulse Resp B/P (MAP) Pulse Ox O2 Delivery O2 Flow Rate FiO2 07/11/17 01:00 72 07/11/17 00:08 97.7 76 18 122/56 (78) 96 Nasal Cannula 3.00 07/10/17 20:00 Nasal Cannula 3.00 07/10/17 19:15 98.9 80 18 120/60 (80) 96 Nasal Cannula 3.00 07/10/17 19:06 92 Nasal Cannula 3.00 07/10/17 19:00 85 07/10/17 15:58 99.7 83 18 113/54 (73) 95 Nasal Cannula 3.00 07/10/17 13:00 79 07/10/17 10:09 94 Nasal Cannula 3.00 07/10/17 09:00 95 Nasal Cannula 3.00 07/10/17 08:00 99.1 82 18 112/57 (75) 95 Nasal Cannula 3.00 I & O 07/11/17 07:00 Intake Total 1250 ml Output Total 775 ml Balance 475 ml General Appearance: No Apparent Distress, WD/WN, Chronically ill, Obese HEENT: PERRL/EOMI Neck: Non Tender, Supple Respiratory: Decreased Breath Sounds, Wheezing Cardiovascular: Regular Rate, Rhythm, No Edema Extremity: Non Tender, No Calf Tenderness, No Pedal Edema Neurologic/Psychiatric: Alert, Oriented x3, No Motor/Sensory Deficits, Depressed Affect Skin: Normal Color, Warm/Dry Lymphatic: No Adenopathy Results Lab Laboratory Tests 07/10/17 03:18 07/11/17 05:10 Assessment/Plan Assessment/Plan Sepsis probably secondary to postobstructive PNA -Continue Zosyn -[place] cultures pending -IVF Hypoxia secondary to large lung mass -PT will probably need home oxygen -SVNs Metastatic melanoma with mets to lung and brain, s/p cranial radiation 4 weeks ago. -Oncology following Seizures secondary to brain mets -RAJINDER Dowd DO July 11, 2017 07:38
[2017-07-11 07:40] LABS: ALANINE AMINOTRANSFERASE 18 U/L (0-55); ALBUMIN 2.6 GM/DL (3.2-4.5); ALKALINE PHOSPHATASE 48 U/L (40-136); BILIRUBIN,TOTAL 0.6 MG/DL (0.1-1.0); BUN/CREATININE RATIO 11; CALCIUM 8.6 MG/DL (8.5-10.1); CARBON DIOXIDE 29 MMOL/L (21-32); CHLORIDE 103 MMOL/L (98-107); CREATININE SERUM 0.54 MG/DL (0.60-1.30); GFR ESTIMATED > 60; GLUCOSE 97 MG/DL (70-105); POTASSIUM 3.3 MMOL/L (3.6-5.0); SODIUM 141 MMOL/L (135-145); TOTAL PROTEIN 5.2 GM/DL (6.4-8.2)
[2017-07-11 07:53] VITALS: BP 122/56
[2017-07-11] MEDS: BENZONATATE 100 MG (TESSALON) CAPSULE PO SCH ×2 (08:03→12:45)
[2017-07-11] MEDS: LEVETIRACETAM 500 MG (KEPPRA) TAB PO SCH (08:03)
[2017-07-11] MEDS: PANTOPRAZOLE 40 MG (PROTONIX) TAB PO SCH (08:04)
[2017-07-11] MEDS: SUCRALFATE 1 GM (CARAFATE) TAB PO SCH ×2 (08:04→12:45)
[2017-07-11] MEDS: POLYETHYLENE GLYCOL 17 GM (MIRALAX) PACK PO SCH (08:05)
[2017-07-11] MEDS: SENNA W/DOCUSATE (SENOKOT S) TABLET PO SCH (08:05)
[2017-07-11] MEDS: DOCUSATE SODIUM 100 MG (COLACE) CAP PO SCH (09:36)
--- NOTE | 2017-07-11 09:49 | Physical Therapy Evaluation ---
PT Evaluation-General Medical Diagnosis Admission Date July 08, 2017 at 15:17 Medical Diagnosis: sepsis, hypoxia, melanoma with mets, seizure, pneumonia Onset Date: July 08, 2017 Therapy Diagnosis Therapy Diagnosis: debility Height/Weight Height (Feet): 5 Height (Inches): 11.00 Weight (Pounds): 188 Weight (Ounces): 0.0 Precautions Precautions/Isolations: Fall Prevention, Standard Precautions Weight Bear Status Right Lower Extremity: Right Full Weight Bearing Left Lower Extremity: Left Full Weight Bearing Referral Physician: Kalen Reason for Referral: Evaluation/Treatment Medical History Pertinent Medical History: Arthritis, GERD Current History seizures secondary to Brain mass with mets to lung. Reviewed History: Yes Social History Home: Single Level Current Living Status: Alone Prior/Core FIM Prior Level of Function Functional [place] Measure 0=Not Assessed/NA 4=Minimal Assistance 1=Total Assistance 5=Supervision or Setup 2=Maximal Assistance 6=Modified [place] 3=Moderate Assistance 7=Complete [place] Bed Mobility: 7 Transfers (B,C,W/C) (FIM): 7 Gait: 7 PT Evaluation-Current Subjective Patient and mother agree to PT. Pain Numeric Pain Scale: 0-No Pain Location: No Pain Reported Objective Patient Orientation: Person, Time, Situation Problem Solving: Fair Attachments: Oxygen, IV ROM/Strength ROM Lower Extremities bilateral LE WNL Strength Lower Extremities 4/5 bilaterally grossly Integumentary/Posture Integumentary refer to nursing notes Bowel Incontinence: No Bladder Incontinence: No Posture WFL Neuromuscular (Tone, Coordination, Reflexes) grossly intact Sensory Vision: Wears Glasses Hearing: Functional Sensation Right Lower Extremit: Intact Sensation Left Lower Extremity: Intact Transfers Functional [place] Measure 0=Not Assessed/NA 4=Minimal Assistance 1=Total Assistance 5=Supervision or Setup 2=Maximal Assistance 6=Modified [place] 3=Moderate Assistance 7=Complete [place] Transfers (B, C, W/C) (FIM): 5 Scootin Rollin Supine to/from Sit: 6 Sit to/from Stand: 5 Gait Mode of Locomotion: Walk Anticipated Mode of Locomotion: Walk Gait (FIM): 5 Distance (FIM): 3=150 ft Distance: 350' Gait Level of Assist: 5 Gait Assistive Device: FWW Comments/Gait Description assist for IV and O2 tank. Patient has FWW established at home per mothers report. Balance Sitting Static: Normal Sitting Dynamic: Normal Standing Static: Normal Standing Dynamic: Normal Assessment/Needs 61 y.o. male, is currently at a SBA to modified independent LOF with all gross motor. Patient's mother reports she is going to take care of him when he is dismissed. Dr. Higuera in to assess patient and reports he will dismiss to home on this date. Rehab Potential: Guarded PT Plan Treatment/Plan Treatment Plan: Discontinue PT Treatment Plan: Other Treatment Duration: July 11, 2017 Frequency: 1 time per week Estimated Hrs Per Day: .25 hour per day Patient and/or Family Agrees t: Yes Discharge Recommendations Therapy D/C Recommendations: Home w/ Family Support Time/GCodes Time In: 925 Time Out: 935 Total Billed Treatment Time: 10 Total Billed Treatment 1 visit EVLowC 10 min G Codes Necessary: No SANTIAGO ARANA PT July 11, 2017 09:49
[2017-07-11] MEDS ORDERED: RT-ALBUTEROL/IPRATROPIUM 3 ML (DUONEB) VIAL INH PRN (10:00)
--- NOTE | 2017-07-11 10:05 | Physician Progress Note ---
Progress Note Assessment/Plan Time Seen by Provider: 12:00 Events since last exam Obstructive pneumonia on IV antibiotics day 4. Will need radiation consultation for the obstruction. I have notified Dr Dang office this morning. He suggested to have a CT scan and he will then review the scan and call patient Fever resolved. Assessment/Plan A/P 1. Fever, most likely from pneumonia on IV antibiotics. 2. Hypoxia and lethargic, multifactors. slowly improving 3. Metastatic melanoma to the lung and brain, s/p cranial radiation 4 weeks ago. Hold off treatment. Rescheduled chemo teaching to 07/18/[address] [place] [address]. I gave his mother appointment card. 4. Hypotension/sepsis. slightly better. 5. Cardiac arrhythmia, f/u by cardiology. 6. Anemia: possible GI bleeding. Not able to collect stool for occult blood. Started him on proton inhibitor and Carafate 2 days ago. Hb continues down. Need to stop Lovenox due to high risk of GI bleeding and cranial bleeding as well as worsening anemia. Vitals Last set of Vitals Signs Vital Signs Date Time Temp Pulse Resp B/P (MAP) Pulse Ox O2 Delivery O2 Flow Rate FiO2 07/11/17 08:30 Nasal Cannula 3.00 07/11/17 07:53 92 07/11/17 07:53 72 32 07/11/17 00:08 97.7 18 122/56 (78) I&O I&O Intake and Output 07/11/17 00:00 Intake Total 1200 ml Output Total 1225 ml Balance -25 ml Intake Oral 1100 ml IV Total 100 ml Output Urine Total 1225 ml # Voids 1 Labs Laboratory Tests 07/11/17 05:10: White Blood Count 5.8, Red Blood Count 3.03L, Hemoglobin 8.8L, Hematocrit 27L, Mean Corpuscular Volume 89, Mean Corpuscular Hemoglobin 29, Mean Corpuscular Hemoglobin Concent 33, Red Cell Distribution Width 16.5H, Platelet Count 201, Mean Platelet Volume 10.2, Neutrophils (%) (Auto) 83H, Lymphocytes (%) (Auto) 6L , Monocytes (%) (Auto) 5, Eosinophils (%) (Auto) 6, Basophils (%) (Auto) 0, Neutrophils # (Auto) 4.8, Lymphocytes # (Auto) 0.3L, Monocytes # (Auto) 0.3, Eosinophils # (Auto) 0.4H, Basophils # (Auto) 0.0, Sodium Level 141, Potassium Level 3.3L, Chloride Level 103, Carbon Dioxide Level 29, Anion Gap 9, Blood Urea Nitrogen 6L, Creatinine 0.54L, Estimat Glomerular Filtration Rate > 60, BUN /Creatinine Ratio 11, Glucose Level 97, Calcium Level 8.6, Total Bilirubin 0.6, Aspartate Amino Transf (AST/SGOT) 4L, Alanine Aminotransferase (ALT/SGPT) 18, Alkaline Phosphatase 48, Total Protein 5.2L, Albumin 2.6L Microbiology 07/08/17 Blood Culture - Preliminary, Resulted No growth Focused Exam Lactate Level 07/08/17 17:55: Lactic Acid Level 0.75 Clinical Quality Measures DVT/VTE Risk/Contraindication: Risk Factor Score Per Nursin RFS Level Per Nursing on Admit: 4+=Very High KWADWO HITCHCOCK MD July 11, 2017 10:05
[2017-07-11] MEDS ORDERED: SUCR1TAB PO (10:59)
[2017-07-11] MEDS ORDERED: OMEP20CA12 PO (10:59)
[2017-07-11] MEDS ORDERED: SERT50TA9 PO (10:59)
[2017-07-11] MEDS ORDERED: AMOX-358 PO (10:59)
[2017-07-11] MEDS ORDERED: BENZ-36 PO (10:59)
[2017-07-11] MEDS ORDERED: ACHD5005 PO (10:59)
--- NOTE | 2017-07-11 11:00 | Discharge Summary-Hospitalist ---
Diagnosis/Chief Complaint Date of Admission July 08, 2017 at 15:17 Date of Discharge Discharge Date: July 11, 2017 Admission Diagnosis Hypoxia with cardiac arrhythmia Discharge Diagnosis (1) Junctional ectopic tachycardia Status: Resolved Assessment & Plan: 07/08 -Consult Dr Gillespie and check EKG and maintain Tely (2) Hypoxia Status: Acute Assessment & Plan: 07/08 -O2, Nebs and Dr Workman consultation (3) Fever Status: Resolved Assessment & Plan: 07/08 -Empiric abx for presumed post-obstructive pneumonia LLL after BCx obtained and noted LA nl (4) Seizure disorder Status: Chronic Assessment & Plan: 07/08 -Keppra home med (5) Cough Status: Acute Assessment & Plan: 07/08 -Nebs (6) Metastatic melanoma Status: Acute Assessment & Plan: 07/08 -Dr Henson consult (7) Pneumonia Status: Acute Assessment & Plan: Presumed post obstructive (8) Debility Status: Acute (9) Depressed Status: Acute Discharge Summary Discharge Physical Exam Allergies: Coded Allergies: No Allergy Information Available (Unverified , 06/07/17) Vitals & I&Os Vital Signs Date Time Temp Pulse Resp B/P (MAP) Pulse Ox O2 Delivery O2 Flow Rate FiO2 07/11/17 15:49 07/11/17 13:00 58 07/11/17 10:15 94 3.00 07/11/17 08:30 Nasal Cannula 07/11/17 07:53 32 07/11/17 00:08 97.7 18 General Appearance: Alert, Oriented X3, Cooperative, Other (Flat affect slowed responses) Respiratory: Clear to Auscultation, Normal Air Movement Cardiovascular: Regular Rate, Normal S1, Normal S2 Neuro: Normal Gait, Normal Speech, Strength at 5/5 X4 Ext Psych/Mental Status: Mental Status NL, Mood NL Hospital Course Hospital course: Patient was transferred higher-level care to [facility] from [facility] when he presented with hypoxia and accelerated junctional arrhythmia when he coughed and exerted himself in the ER [place]. He was Dr. Elmore's patient Celexa him in transfer and consulted cardiology and oncology Dr. Escobedo and Dr. Workman pulmonology. He experienced a fever shortly after arrival when ABG was obtained of 101.8 chest x-ray was evaluated and it was presumed it was postobstructive pneumonia with left lower lobe metastatic lung mass of melanoma area he actually was diagnosed with melanoma of unknown primary source with interventional radiology lung biopsy at [facility] when he was transferred there due to new-onset seizures for neurology care. He was placed on seizure medication and sent home but declined rapidly with cough and increasing palpitations with hypoxia. Cardiology monitored on telemetry noted normal sinus rhythm throughout the hospital course so no antiarrhythmics were initiated and no evidence of anticoagulation required. Home oxygen was needed at time of discharge the 3 L continuous use was ordered and Dr. Elmore primary care provider was updated on the plan. He was placed on Zosyn empirically for presumed pneumonia he will complete 5 more days of Augmentin at discharge and he will see oncology in close follow-up along with Dr. Elmore. Poor prognosis remains considering melanoma widely metastatic and now new hypoxia. Labs (last 24 hrs) Laboratory Tests 07/11/17 05:10: White Blood Count 5.8, Red Blood Count 3.03L, Hemoglobin 8.8L, Hematocrit 27L, Mean Corpuscular Volume 89, Mean Corpuscular Hemoglobin 29, Mean Corpuscular Hemoglobin Concent 33, Red Cell Distribution Width 16.5H, Platelet Count 201, Mean Platelet Volume 10.2, Neutrophils (%) (Auto) 83H, Lymphocytes (%) (Auto) 6L , Monocytes (%) (Auto) 5, Eosinophils (%) (Auto) 6, Basophils (%) (Auto) 0, Neutrophils # (Auto) 4.8, Lymphocytes # (Auto) 0.3L, Monocytes # (Auto) 0.3, Eosinophils # (Auto) 0.4H, Basophils # (Auto) 0.0, Sodium Level 141, Potassium Level 3.3L, Chloride Level 103, Carbon Dioxide Level 29, Anion Gap 9, Blood Urea Nitrogen 6L, Creatinine 0.54L, Estimat Glomerular Filtration Rate > 60, BUN /Creatinine Ratio 11, Glucose Level 97, Calcium Level 8.6, Total Bilirubin 0.6, Aspartate Amino Transf (AST/SGOT) 4L, Alanine Aminotransferase (ALT/SGPT) 18, Alkaline Phosphatase 48, Total Protein 5.2L, Albumin 2.6L 07/11/17 10:27: Stool Occult Blood Immunoassay NEGATIVE Microbiology 07/08/17 Blood Culture - Preliminary, Resulted No growth Patient resulted labs reviewed. Pending Labs Discussion & Recommendations Discharge Planning: <30 minutes discharge planning Discharge Home Medications: Active Scripts Active Omeprazole 20 Mg Capsule.dr 20 Mg PO DAILY Augmentin 875-125 Tablet (Amoxicillin/Potassium Clav) 1 Each Tablet 1 Each PO BID Sucralfate 1 Gm Tablet 1 Gm PO QID Benzonatate 100 Mg Capsule 200 Mg PO TID Sertraline HCl 50 Mg Tablet 50 Mg PO HS Hydrocodone/Acetaminophen 5/325mg Tablet (Acetaminophen/Hydrocodone Bitart) 1 Tab Tab 1 Tab PO Q4H PRN Reported Mekinist (Trametinib Dimethyl Sulfoxide) 2 Mg Tablet 2 Mg PO DAILY HAS NOT STARTED YET Tafinlar (Dabrafenib Mesylate) 75 Mg Capsule 75 Mg PO BID HAS NOT STARTED YET Levetiracetam 500 Mg Tablet 500 Mg PO BID Instructions to patient/family Please see electronic discharge instructions given to patient. Clinical Quality Measures DVT/VTE Risk/Contraindication: Risk Factor Score Per Nursin RFS Level Per Nursing on Admit: 4+=Very High Problem Qualifiers (1) Fever: Fever type: unspecified Qualified Codes: R50.9 - Fever, unspecified (2) Pneumonia: Pneumonia type: due to unspecified organism Laterality: left Lung location: lower lobe of lung Qualified Codes: J18.1 - Lobar pneumonia, unspecified organism (3) Depressed: Depression Type: reactive depression Qualified Codes: F32.9 - Major depressive disorder, single episode, unspecified KRISTEN BEDOYA DO July 11, 2017 11:00
[2017-07-11] MEDS ORDERED: KCL 20 MEQ TAB (K-DUR) PO NR (11:24)
[2017-07-11] MEDS ORDERED: RECEIVED CONTRAST (Hold Metformin) IV SCH (12:30)
[2017-07-11] MEDS ORDERED: CATHETER FLUSH 10 ML SYR IV PRN (12:30)
[2017-07-11] MEDS ORDERED: IOHEXOL 350 MG/ML 100 ML (OMNIPAQUE 350) VIAL IV ONE (12:30)
[2017-07-11] MEDS ORDERED: NS 250 ML (IVPB) BAG IV ONE (12:30)
--- NOTE | 2017-07-11 14:24 | Occ Therapy Progress Note ---
Therapy Progress Note OT attempted treatment this morning. Pt. up in chair, mother in room. Pt. declines showering, as well as spongebath. States that he is going home today. Mother confirms this. Pt. is asked if he would like to get dressed with OT assist before discharge home. Pt. declines. Mother states that he can do that on his own with no difficulty. Pt. expresses no other needs at this time. Discharging today. 1, visit Discharge [id number] SHERIN SANTANA OT July 11, 2017 14:24
--- NOTE | 2017-07-11 15:57 | Diagnostic Imaging Report ---
PROCEDURE: CT chest with and without contrast. TECHNIQUE: Multiple contiguous axial images were obtained through the chest before and after administration of intravenous contrast. INDICATION: Melanoma. FINDINGS: The CT abdomen/pelvis exam performed on 06/07/2017 noted a large mass in the left lung base. This mass measured 7.3 x 11.6 cm. The subsequent PET/CT exam of 06/25/2017 revealed that this mass was hypermetabolic consistent with neoplasm. On this study, the mass is again identified. The mass has increased in size since the prior exam and now measures 8.5 x 13.0 cm. Furthermore, in the interval since the prior CT abdomen/pelvis exam, diffuse alveolar/interstitial pulmonary infiltrates have developed bilaterally. This appearance does suggest pneumonia/atelectasis and/or pulmonary edema. There is no mediastinal or hilar adenopathy. The thyroid gland is unremarkable. The heart size is stable. The aorta is not abnormally dilated. There is no defect within the pulmonary arteries to indicate a pulmonary embolus. The pulmonary arteries, however, are not optimally opacified. The images through the upper abdomen reveal that the 0.7 x 1.5 cm nodule associated with the right adrenal gland has increased in size and now measures 2.1 x 2.4 cm. There is no acute abnormality of the upper abdomen. The bone windows show no sign of a fracture or of a destructive lesion. IMPRESSION: 1. The appearance of the chest has worsened since the prior study as the large mass in the left lung base has increased in size. The right adrenal mass noted previously is also greater in size than noted on the prior study. 2. Alveolar/interstitial pulmonary infiltrates have developed in both lungs. These are probably secondary to pneumonia, atelectasis, and/or pulmonary edema. 3. There is no acute abnormality identified otherwise. The pulmonary arteries were not well opacified, however, and consequently the evaluation for the pulmonary embolus is limited. Dictated by: Dictated on workstation # [id number]
[2017-07-11] MEDS ORDERED: PIPERACILLIN SODIUM/TAZOBACTAM 4.5 GM/D5W 100 ML IV SCH ×2 (16:00)
--- NOTE | 2017-07-11 18:09 | Cardiology Progress Note ---
Cardiology SOAP Progress Note Subjective: No cardiac symptoms. Objective: I&O/Vital Signs 07/11/17 07/11/17 07/11/17 07/11/17 07:02 07:53 07:53 08:30 Pulse 62 72 Pulse Ox 92 92 O2 Delivery Nasal Cannula Nasal Cannula O2 Flow Rate 3.00 3.00 FiO2 32 07/11/17 07/11/17 07/11/17 10:15 13:00 15:49 Pulse 58 B/P (MAP) Pulse Ox 94 O2 Flow Rate 3.00 07/11/17 00:00 Intake Total 900 ml Output Total 300 ml Balance 600 ml Weight (Pounds): 188 Weight (Ounces): 0.0 Weight (Calculated Kilograms): 85.378190 Constitutional: AAO x 3 Respiratory: No accessory muscle use, No respiratory distress, No chest tender , No chest expansion is symmetric; chest is bilaterally symmetric; No lungs clear to percussion; lungs clear to auscultation; No crackles, No rhonchi, No rales, No stridor, No wheezing, No pleural rub, No other Cardiovascular: regular rate-rhythm; No irregularly irregular, No extra beats, No parasternal heave is noted, No JVD, No edema, No bradycardia, No tachycardia , No point of maximal impulse, No cardiac thrills are palpable; S1 and S2; No gallop/S3, No gallop/S4, No diastolic murmur, No systolic murmur, No friction rub, No click, No other Gastrointestional: No tender, No soft, No round, No distended, No pulsatile mass, No organomegaly, No guarding, No rebound, No tenderness, No hernia, No mass, No audible bowel sounds, No abnormal bowel sounds, No abdominal bruits, No spleenomegaly, No other Extremities: No normal range of motion, No non-tender, No normal inspection, No pedal edema, No calf tenderness, No normal capillary refill, No pelvis stable , No calf tenderness, No inflammation, No pedal edema, No slow capillary refill , No swelling, No other, No abrasion, No clubbing, No cyanosis, No ecchymosis, No laceration, No no lower extremity edema bilateral, No significant edema, No tenderness, No wound Neurologic/Psychiatric: alert, oriented x 3, depressed affect Skin: No normal color, No warm/dry, No cyanosis, No cool, No diaphoresis, No damp, No ecchymosis, No jaundice, No mottled, No pallor, No rash, No tattoos/ piercings, No ulcerations, No rash on exposed areas, No ulcerations on exposed areas, No other Results/Procedures: Labs Laboratory Tests 07/11/17 05:10: White Blood Count 5.8, Red Blood Count 3.03L, Hemoglobin 8.8L, Hematocrit 27L, Mean Corpuscular Volume 89, Mean Corpuscular Hemoglobin 29, Mean Corpuscular Hemoglobin Concent 33, Red Cell Distribution Width 16.5H, Platelet Count 201, Mean Platelet Volume 10.2, Neutrophils (%) (Auto) 83H, Lymphocytes (%) (Auto) 6L , Monocytes (%) (Auto) 5, Eosinophils (%) (Auto) 6, Basophils (%) (Auto) 0, Neutrophils # (Auto) 4.8, Lymphocytes # (Auto) 0.3L, Monocytes # (Auto) 0.3, Eosinophils # (Auto) 0.4H, Basophils # (Auto) 0.0, Sodium Level 141, Potassium Level 3.3L, Chloride Level 103, Carbon Dioxide Level 29, Anion Gap 9, Blood Urea Nitrogen 6L, Creatinine 0.54L, Estimat Glomerular Filtration Rate > 60, BUN /Creatinine Ratio 11, Glucose Level 97, Calcium Level 8.6, Total Bilirubin 0.6, Aspartate Amino Transf (AST/SGOT) 4L, Alanine Aminotransferase (ALT/SGPT) 18, Alkaline Phosphatase 48, Total Protein 5.2L, Albumin 2.6L 07/11/17 10:27: Stool Occult Blood Immunoassay NEGATIVE Microbiology 07/08/17 Blood Culture - Preliminary, Resulted No growth A/P: Assessment/Dx: Malignant melanoma with lung and brain metastases, Possible junctional rhythm, PACs, PVCs, Sepsis, Depression Plan: Malignant melanoma with lung and brain metastases, on chemotherapy. Cranial radiation therapy. Oncology services following. Echocardiogram showed borderline low LV function with an EF of 50 percent. Normal RV size and function. No significant valvular heart disease. Possible junctional rhythm, telemetry shows sinus rhythm. No treatment recommended at this point in time. PACs, occasional PACs. We will continue to monitor clinically. PVCs, frequent PVCs however will not recommend beta blockers due to borderline blood pressure. Systolic blood pressure below 100 mmHg on my evaluation. Sepsis, resolved. Depression The patient can be discharged to follow-up Dr. Elmore and Dr. Henson. I do not think that a scheduled outpatient appointment is required with Cardiology. I have given the patient/spouse my office information and will be happy to see if required by either Dr Elmore or Dr Henson or the patient. Thank you for your consultation. Please call me if you have any questions. Jolie Michaels MD, FACP, FACC, FSCAI, FHRS, CCDS Interventional Cardiology Cardiac Electrophysiology Vascular Medicine and Endovascular Interventions Danny MICHAELS MD July 11, 2017 18:09
== END 2017-07-11 16:10 | disposition home or self-care (01) | DRG 308 ==
LOC: ICU 15:17 → 4TH 07-10 11:45
PROVIDERS: ADMIT Internal Medicine; ATTEND Internal Medicine
DX: I47.1 Supraventricular tachycardia (principal); J18.9 Pneumonia, unspecified organism; R09.02 Hypoxemia; C78.01 Secondary malignant neoplasm of right lung; C78.02 Secondary malignant neoplasm of left lung; C79.31 Secondary malignant neoplasm of brain; C43.9 Malignant melanoma of skin, unspecified; D64.9 Anemia, unspecified; G40.909 Epilepsy, unspecified, not intractable, without status epilepticus; K21.9 Gastro-esophageal reflux disease without esophagitis; F32.9 Major depressive disorder, single episode, unspecified; R53.81 Other malaise
CPT/HCPCS: 36415; 36600; 71045; 71270; 80053; 81000; 82274; 82805; 83605; 85025; 87040; 94760; 94761

== ENCOUNTER 2017-08-14 13:44 | Outpatient (RCR) | payer OTHER ==
[2017-05-23 15:48] LABS: BASOPHILS % (AUTO) 0 % (0-10); EOSINOPHILS # (AUTO) 0.1 10^3/uL (0.0-0.3); EOSINOPHILS % (AUTO) 1 % (0-10); HEMATOCRIT 42 % (40-54); LYMPHOCYTES # (AUTO) 0.7 X 10^3 (1.0-4.0); LYMPHOCYTES % (AUTO) 5 % (12-44); MEAN CORPUSCULAR HEMOGLOBIN 30 PG (25-34); MEAN CORPUSCULAR HGB CONC 34 G/DL (32-36); MEAN CORPUSCULAR VOLUME 89 FL (80-99); MONOCYTES # (AUTO) 0.7 X 10^3 (0.0-1.0); MONOCYTES % (AUTO) 5 % (0-12); NEUTROPHILS # (AUTO) 11.6 X 10^3 (1.8-7.8); NEUTROPHILS % (AUTO) 89 % (42-75); PLATELET COUNT 336 10^3/uL (130-400); RED BLOOD COUNT 4.68 10^6/uL (4.35-5.85); RED CELL DISTRIBUTION WIDTH 15.5 % (10.0-14.5); WHITE BLOOD COUNT 13.1 10^3/uL (4.3-11.0)
[2017-05-23 16:07] LABS: ALANINE AMINOTRANSFERASE 37 U/L (0-55); ALBUMIN 3.8 GM/DL (3.2-4.5); ALKALINE PHOSPHATASE 63 U/L (40-136); BILIRUBIN,TOTAL 0.3 MG/DL (0.1-1.0); BUN/CREATININE RATIO 41; CALCIUM 8.9 MG/DL (8.5-10.1); CARBON DIOXIDE 27 MMOL/L (21-32); CHLORIDE 106 MMOL/L (98-107); CREATININE SERUM 0.82 MG/DL (0.60-1.30); GFR ESTIMATED > 60; GLUCOSE 126 MG/DL (70-105); POTASSIUM 4.5 MMOL/L (3.6-5.0); SODIUM 140 MMOL/L (135-145); TOTAL PROTEIN 6.6 GM/DL (6.4-8.2)
[2017-07-25 10:47] LABS: BASOPHILS # (AUTO) 0.1 10^3/uL (0.0-0.1); BASOPHILS % (AUTO) 1 % (0-10); EOSINOPHILS # (AUTO) 0.2 10^3/uL (0.0-0.3); EOSINOPHILS % (AUTO) 2 % (0-10); HEMATOCRIT 34 % (40-54); HEMOGLOBIN 10.8 G/DL (13.3-17.7); LYMPHOCYTES # (AUTO) 2.3 X 10^3 (1.0-4.0); LYMPHOCYTES % (AUTO) 25 % (12-44); MEAN CORPUSCULAR HEMOGLOBIN 28 PG (25-34); MEAN CORPUSCULAR HGB CONC 32 G/DL (32-36); MEAN CORPUSCULAR VOLUME 89 FL (80-99); MEAN PLATELET VOLUME 9.1 FL (7.4-10.4); MONOCYTES # (AUTO) 0.7 X 10^3 (0.0-1.0); MONOCYTES % (AUTO) 8 % (0-12); NEUTROPHILS % (AUTO) 65 % (42-75); PLATELET COUNT 808 10^3/uL (130-400); RED BLOOD COUNT 3.79 10^6/uL (4.35-5.85); WHITE BLOOD COUNT 9.3 10^3/uL (4.3-11.0)
[2017-07-25 11:07] LABS: ALANINE AMINOTRANSFERASE 13 U/L (0-55); ALBUMIN 3.3 GM/DL (3.2-4.5); ALKALINE PHOSPHATASE 88 U/L (40-136); BILIRUBIN,TOTAL 0.3 MG/DL (0.1-1.0); BUN/CREATININE RATIO 21; CARBON DIOXIDE 28 MMOL/L (21-32); CHLORIDE 101 MMOL/L (98-107); CREATININE SERUM 0.81 MG/DL (0.60-1.30); GFR ESTIMATED > 60; GLUCOSE 89 MG/DL (70-105); POTASSIUM 4.7 MMOL/L (3.6-5.0); SODIUM 139 MMOL/L (135-145)
[2017-07-31 14:17] LABS: BASOPHILS # (AUTO) 0.1 10^3/uL (0.0-0.1); BASOPHILS % (AUTO) 1 % (0-10); EOSINOPHILS # (AUTO) 0.3 10^3/uL (0.0-0.3); EOSINOPHILS % (AUTO) 3 % (0-10); HEMATOCRIT 32 % (40-54); HEMOGLOBIN 10.4 G/DL (13.3-17.7); LYMPHOCYTES # (AUTO) 2.1 X 10^3 (1.0-4.0); LYMPHOCYTES % (AUTO) 25 % (12-44); MEAN CORPUSCULAR HEMOGLOBIN 29 PG (25-34); MEAN CORPUSCULAR HGB CONC 32 G/DL (32-36); MEAN CORPUSCULAR VOLUME 89 FL (80-99); MEAN PLATELET VOLUME 9.4 FL (7.4-10.4); MONOCYTES # (AUTO) 0.5 X 10^3 (0.0-1.0); MONOCYTES % (AUTO) 6 % (0-12); NEUTROPHILS # (AUTO) 5.6 X 10^3 (1.8-7.8); NEUTROPHILS % (AUTO) 65 % (42-75); PLATELET COUNT 602 10^3/uL (130-400); RED BLOOD COUNT 3.63 10^6/uL (4.35-5.85); RED CELL DISTRIBUTION WIDTH 16.1 % (10.0-14.5); WHITE BLOOD COUNT 8.6 10^3/uL (4.3-11.0)
[2017-07-31 14:35] LABS: ALANINE AMINOTRANSFERASE 10 U/L (0-55); ALBUMIN 3.3 GM/DL (3.2-4.5); ALKALINE PHOSPHATASE 112 U/L (40-136); BILIRUBIN,TOTAL 0.4 MG/DL (0.1-1.0); BUN/CREATININE RATIO 17; CALCIUM 9.7 MG/DL (8.5-10.1); CARBON DIOXIDE 29 MMOL/L (21-32); CHLORIDE 101 MMOL/L (98-107); CREATININE SERUM 0.76 MG/DL (0.60-1.30); GFR ESTIMATED > 60; GLUCOSE 89 MG/DL (70-105); POTASSIUM 3.9 MMOL/L (3.6-5.0); SODIUM 140 MMOL/L (135-145); TOTAL PROTEIN 8.1 GM/DL (6.4-8.2)
[~2017-08-14 13:44] MED LIST changes: +ACHD5005 PO; +AMOX-358 PO; -BARIUM SUSPENSION 2.1% (VANILLA SILQ) 450 ML PO ONE; +BENZ-36 PO; -CATHETER FLUSH 10 ML SYR IV PRN; +DABR75CA PO; +ENOXAPARIN 40 MG/0.4 ML (LOVENOX) SYR SC SCH; -IOHEXOL 350 MG/ML 100 ML (OMNIPAQUE 350) VIAL IV ONE; +LEVE500T6 PO; -NS 250 ML (IVPB) BAG IV ONE; +NS IV 1000 ML 1,000 ML IV SCH; +OMEP20CA12 PO; +SERT50TA9 PO; +SUCR1TAB PO; +TRAM2TAB PO
[2017-08-14 14:17] LABS: BASOPHILS % (AUTO) 1 % (0-10); EOSINOPHILS # (AUTO) 0.3 10^3/uL (0.0-0.3); EOSINOPHILS % (AUTO) 4 % (0-10); HEMATOCRIT 30 % (40-54); HEMOGLOBIN 9.5 G/DL (13.3-17.7); LYMPHOCYTES # (AUTO) 1.7 X 10^3 (1.0-4.0); LYMPHOCYTES % (AUTO) 29 % (12-44); MEAN CORPUSCULAR HEMOGLOBIN 28 PG (25-34); MEAN CORPUSCULAR HGB CONC 32 G/DL (32-36); MEAN CORPUSCULAR VOLUME 90 FL (80-99); MEAN PLATELET VOLUME 9.9 FL (7.4-10.4); MONOCYTES # (AUTO) 0.6 X 10^3 (0.0-1.0); MONOCYTES % (AUTO) 10 % (0-12); NEUTROPHILS # (AUTO) 3.3 X 10^3 (1.8-7.8); NEUTROPHILS % (AUTO) 57 % (42-75); PLATELET COUNT 305 10^3/uL (130-400); RED BLOOD COUNT 3.34 10^6/uL (4.35-5.85); RED CELL DISTRIBUTION WIDTH 17.3 % (10.0-14.5); WHITE BLOOD COUNT 5.9 10^3/uL (4.3-11.0)
[2017-08-14 14:36] LABS: ALANINE AMINOTRANSFERASE 7 U/L (0-55); ALBUMIN 3.3 GM/DL (3.2-4.5); ALKALINE PHOSPHATASE 131 U/L (40-136); BILIRUBIN,TOTAL 0.3 MG/DL (0.1-1.0); BUN/CREATININE RATIO 14; CALCIUM 9.2 MG/DL (8.5-10.1); CARBON DIOXIDE 30 MMOL/L (21-32); CHLORIDE 103 MMOL/L (98-107); CREATININE SERUM 0.94 MG/DL (0.60-1.30); GFR ESTIMATED > 60; GLUCOSE 97 MG/DL (70-105); SODIUM 141 MMOL/L (135-145); TOTAL PROTEIN 7.4 GM/DL (6.4-8.2)
== END 2017-08-21 | disposition home or self-care (01) ==
LOC: ONC 13:44
PROVIDERS: ATTEND Internal Medicine Hematology & Oncology
DX: C79.31 Secondary malignant neoplasm of brain (principal); C34.32 Malignant neoplasm of lower lobe, left bronchus or lung; Z80.0 Family history of malignant neoplasm of digestive organs; Z79.82 Long term (current) use of aspirin
CPT/HCPCS: 36415; 77334; 77470; 80053; 82378; 82728; 83540; 83615; 85025; 99205; 99213

== ENCOUNTER 2017-09-09 15:29 | Outpatient (RCR) | payer OTHER ==
[2017-09-09 09:16] LABS: BASOPHILS % (AUTO) 1 % (0-10); EOSINOPHILS # (AUTO) 0.1 10^3/uL (0.0-0.3); EOSINOPHILS % (AUTO) 1 % (0-10); HEMATOCRIT 34 % (40-54); HEMOGLOBIN 10.3 G/DL (13.3-17.7); LYMPHOCYTES # (AUTO) 1.6 X 10^3 (1.0-4.0); LYMPHOCYTES % (AUTO) 33 % (12-44); MEAN CORPUSCULAR HEMOGLOBIN 28 PG (25-34); MEAN CORPUSCULAR HGB CONC 30 G/DL (32-36); MEAN CORPUSCULAR VOLUME 93 FL (80-99); MEAN PLATELET VOLUME 9.5 FL (7.4-10.4); MONOCYTES # (AUTO) 0.4 X 10^3 (0.0-1.0); MONOCYTES % (AUTO) 9 % (0-12); NEUTROPHILS # (AUTO) 2.8 X 10^3 (1.8-7.8); NEUTROPHILS % (AUTO) 57 % (42-75); PLATELET COUNT 437 10^3/uL (130-400); RED BLOOD COUNT 3.66 10^6/uL (4.35-5.85); RED CELL DISTRIBUTION WIDTH 17.6 % (10.0-14.5)
[2017-09-09 09:40] LABS: ALANINE AMINOTRANSFERASE 14 U/L (0-55); ALBUMIN 3.5 GM/DL (3.2-4.5); ALKALINE PHOSPHATASE 136 U/L (40-136); BILIRUBIN,TOTAL 0.3 MG/DL (0.1-1.0); BUN/CREATININE RATIO 19; CALCIUM 9.7 MG/DL (8.5-10.1); CARBON DIOXIDE 31 MMOL/L (21-32); CHLORIDE 102 MMOL/L (98-107); CREATININE SERUM 0.75 MG/DL (0.60-1.30); GFR ESTIMATED > 60; GLUCOSE 95 MG/DL (70-105); POTASSIUM 4.4 MMOL/L (3.6-5.0); SODIUM 140 MMOL/L (135-145); TOTAL PROTEIN 7.6 GM/DL (6.4-8.2)
[~2017-09-09 15:29] MED LIST changes: -ENOXAPARIN 40 MG/0.4 ML (LOVENOX) SYR SC SCH; -NS IV 1000 ML 1,000 ML IV SCH
== END 2017-10-01 | disposition home or self-care (01) ==
LOC: ONC 15:29
PROVIDERS: ATTEND Internal Medicine Hematology & Oncology
DX: C79.31 Secondary malignant neoplasm of brain (principal); C78.01 Secondary malignant neoplasm of right lung; C78.02 Secondary malignant neoplasm of left lung; C43.9 Malignant melanoma of skin, unspecified; Z80.0 Family history of malignant neoplasm of digestive organs; Z79.82 Long term (current) use of aspirin
CPT/HCPCS: 36415; 80053; 85025; 99213